=== PATIENT | female | born 2000 | race Caucasian/White ===

== ENCOUNTER → 2023-07-12 14:21 | Outpatient (CLI) | payer OTHER, SELFPAY ==
[2023-07-12 14:49] LABS: Basophils # 0.1 K/mm3 (0-0.2); Basophils % 0.4 % (0.1-2.0); Eosinophils # 0.3 K/mm3 (0.0-0.4); Eosinophils % 1.9 % (0.1-12.0); Hemoglobin 13.6 g/dL (12.2-16.2); Lymphocytes # 2.5 K/mm3 (0.7-4.5); Lymphocytes % 19.1 % (10-50); Mean Corpuscular HGB Conc 33.3 g/dL (31.8-35.4); Mean Corpuscular Hemoglobin 29.1 pg (27.0-31.2); Mean Corpuscular Volume 87.5 fl (81-99); Mean Platelet Volume 7.6 fl (7.4-10.4); Monocytes # 0.6 K/mm3 (0.1-1.0); Monocytes % 4.3 % (1.7-9.3); Neutrophils # 9.8 K/mm3 (1.8-7.8); Neutrophils % 74.2 % (37.0-80.0); Platelet Count 303 K/mm3 (142-424); Red Blood Count 4.69 M/mm3 (4.20-5.40); Red Cell Distribution Width 13.5 % (11.5-17.5); White Blood Count 13.2 K/mm3 (4.8-10.8)
[2023-07-14 12:13] LABS: Rapid Plasma Reagin Ab Titer Non Reactive titer (NonRea<1:1)
[2023-07-18 09:40] LABS: HIV Screen 4th Generation wRfx Non Reactive; Hepatitis B Surface Antigen Negative; Hepatitis C Antibody Non Reactive
== END ==
PROVIDERS: PCP Obstetrics & Gynecology; Visit Provider Obstetrics & Gynecology
DX: Z34.91 Encounter for supervision of normal pregnancy, unspecified, first trimester (principal); N92.6 Irregular menstruation, unspecified; Z3A.11 11 weeks gestation of pregnancy
CPT/HCPCS: 36415; 84144; 84702; 85025; 86593; 86703; 86762; 86850; 87086; 87340; 87380; G0432

== ENCOUNTER 2023-09-06 13:34 | Outpatient (CLI) | payer OTHER, SELFPAY ==
--- NOTE | 2023-09-06 13:34 | US_ITS ---
PROCEDURE: US OB /MATERNAL DETAIL CLINICAL INDICATION: 20 week anatomy scan COMPARISON: No exams were available for comparison FINDINGS: Transabdominal sonographic images of the pelvis were obtained. From her established due date she is . Single viable intrauterine gestation. Cephalic position. Placenta: Anteriorplacenta grade 1. There are several placental lakes. There is an average amount of fluid. The cervix appears satisfactory. Closed and measuring 3.36 in length. Complete survey performed and was unremarkable on the submitted images as in PACS. No discrete anomalies identified on survey imaging by technologist. Active fetus. Three-vessel cord with satisfactory umbilical cord insertion. 4- chamber heart noted. Situs, aortic arch, LVOT, RVOT, three-vessel view appear normal. Survey of brain & ventricles Unremarkable. Cerebellum, thalamus, choroid plexus, cisterna magna appear normal. Face and neck survey unremarkable. Profile, nasion, lips and nose appeared normal. Diaphragm and chest views unremarkable. Abdomen: Both kidneys noted and unremarkable. Stomach and bladder noted and satisfactory. Spine: Survey of the spine satisfactory with no anomalies identified nor imaged. Cervical, thoracic, lower spine appear normal. Both arms and legs noted. Amniotic Fluid: Adequate. Measurements: Average ultrasound age 19weeks 6days. Estimated due date by ultrasound age 0601/25/2024. Estimated weight 312g BPD = 19weeks 5days HC = 19weeks 3days AC = 20weeks 1day FL = 19weeks 5days Growth Percentile= 58 Heart Rate = 153bpm Cerebellum = 19weeks 2days Humerus = 20weeks 1day HC/AC is 1.14 FL/BPD is 0.69 FL/AC is 0.21 IMPRESSION: 1. Viable fetus in the cephalic presentation with an anterior placenta grade 1. There are several placental lakes. 2. The fluid is within normal limits. 3. The anatomical scan appears normal. 4. biometry is consistent with the dates. Dictated by: Trae Motta MD 09/07/2023 09:49 Trae Motta MD in [place] 09/07/2023 09:49
[2023-09-06 15:01] LABS: Basophils % 0.3 % (0.1-2.0); Eosinophils # 0.1 K/mm3 (0.0-0.4); Eosinophils % 0.9 % (0.1-12.0); Hematocrit 36.5 % (37.0-47.0); Hemoglobin 12.5 g/dL (12.2-16.2); Lymphocytes # 1.4 K/mm3 (0.7-4.5); Lymphocytes % 13.7 % (10-50); Mean Corpuscular HGB Conc 34.2 g/dL (31.8-35.4); Mean Corpuscular Hemoglobin 29.9 pg (27.0-31.2); Mean Corpuscular Volume 87.4 fl (81-99); Mean Platelet Volume 7.8 fl (7.4-10.4); Monocytes # 0.3 K/mm3 (0.1-1.0); Monocytes % 2.8 % (1.7-9.3); Neutrophils # 8.3 K/mm3 (1.8-7.8); Neutrophils % 82.3 % (37.0-80.0); Platelet Count 260 K/mm3 (142-424); Red Blood Count 4.17 M/mm3 (4.20-5.40); White Blood Count 10.1 K/mm3 (4.8-10.8)
[2023-09-06 15:27] LABS: Alanine Aminotransferase 34 U/L (12-78); Albumin Level 3.5 g/dl (3.5-5.0); Albumin/Globulin Ratio 1.5 (1.1-1.8); Alkaline Phosphatase 54 U/L (38-126); Anion Gap 9.8 mEq/L (5-15); Aspartate Amino Transferase 24 U/L (14-36); Bilirubin,Total 0.2 mg/dl (0.2-1.3); Blood Urea Nitrogen 4 mg/dl (7-17); Carbon Dioxide 23 mmol/L (22.0-30.0); Chloride 108 mmol/L (98-107); Estimated Glomerular Filt Rate 124 ml/min (>60); GFR (African American) 150 ML/MIN (>60); Globulin 2.3 g/dL (1.3-3.2); Glucose 133 mg/dl (74-100); Potassium 3.8 mmoL/L (3.5-5.1); Sodium 137 mmol/L (136-145); Total Protein,Serum 5.8 g/dl (6.3-8.2)
== END 2023-09-06 23:59 ==
LOC: RAD 13:34
PROVIDERS: PCP Obstetrics & Gynecology; Visit Provider Obstetrics & Gynecology
DX: O10.912 Unspecified pre-existing hypertension complicating pregnancy, second trimester (principal); Z3A.20 20 weeks gestation of pregnancy; E66.01 Morbid (severe) obesity due to excess calories; Z68.43 Body mass index [BMI] 50.0-59.9, adult
CPT/HCPCS: 76811; 80053; 84550; 85025

== ENCOUNTER 2023-09-09 14:28 | Outpatient (CLI) | payer OTHER, SELFPAY ==
[2023-09-09 14:44] LABS: Total Volume,Urine 3020 mL (600-1600)
[2023-09-09 14:55] LABS: Total Protein 24 Hour,Urine 483 mg/24 hr (40-90)
== END 2023-09-09 23:59 ==
LOC: LAB.DROPOF 14:29
PROVIDERS: Visit Provider Obstetrics & Gynecology
DX: O10.912 Unspecified pre-existing hypertension complicating pregnancy, second trimester (principal); Z3A.19 19 weeks gestation of pregnancy
CPT/HCPCS: 84155

== ENCOUNTER 2023-11-01 08:28 | Outpatient (CLI) | payer OTHER, SELFPAY ==
--- NOTE | 2023-11-01 08:29 | US_ITS ---
PROCEDURE: US OB BIOPHYSICAL PROFILE CLINICAL INDICATION: lga, chronic hypertension in COMPARISON: US US OB /MATERNAL DETAIL from 09/06/2023 FINDINGS: Transabdominal sonographic images of the uterus were obtained. From her established due date she is 27weeks 4days. The following parameters are obtained: Viable Fetus in the cephalic presentation with an anterior placenta grade 1. Average ultrasound age is 28weeks 0 days Estimated weight 1,137g 2 lb 8 oz The cervix measures 4.0 cm. Measurements: heart Rate = 139bpm BPD = 28weeks 2days, 60 percentile HC = 28weeks 0 days, 33 percentile AC = 28weeks 2days, 64 percentile FL = 27weeks 1day, 22 percentile HC/AC is 1.07 FL/BPD is 0.72 FL/AC is 0.21 49 percentile Amniotic fluid index: 10.27cm, MVP 4.13 cm. Qualitative AFV:2 Breathing movements: 2 Gross Body Movements: 2 Tone: 2 Biophysical profile score: 8 No obvious anomalies evident.Kidneys, profile, bladder, stomach, diaphragm, four-chamber heart, three-vessel cord appear normal. IMPRESSION: 1. Viable fetus in the cephalic presentation with an anterior placenta grade 1. 2. The fluid is within normal limits with an amniotic fluid index 10.27 cm, MVP 4.13 cm. 3. Biophysical profile is 8/8 with good breathing movement and movement seen. 4. There has been good interval growth with the fetus currently 49th percentile. 5. Limited anatomical scan appears normal. Dictated by: Trae Motta MD 11/02/2023 07:39 Trae Motta MD in [facility] 11/02/2023 07:39
[2023-11-01 10:43] LABS: Basophils # 0.1 K/mm3 (0-0.2); Basophils % 0.4 % (0.1-2.0); Eosinophils # 0.1 K/mm3 (0.0-0.4); Eosinophils % 0.9 % (0.1-12.0); Hematocrit 38.3 % (37.0-47.0); Hemoglobin 12.6 g/dL (12.2-16.2); Lymphocytes # 1.7 K/mm3 (0.7-4.5); Lymphocytes % 12.5 % (10-50); Mean Corpuscular HGB Conc 32.9 g/dL (31.8-35.4); Mean Corpuscular Hemoglobin 30.1 pg (27.0-31.2); Mean Corpuscular Volume 91.5 fl (81-99); Mean Platelet Volume 8.5 fl (7.4-10.4); Monocytes # 0.5 K/mm3 (0.1-1.0); Monocytes % 3.9 % (1.7-9.3); Neutrophils # 11.4 K/mm3 (1.8-7.8); Neutrophils % 82.4 % (37.0-80.0); Platelet Count 261 K/mm3 (142-424); Red Blood Count 4.18 M/mm3 (4.20-5.40); Red Cell Distribution Width 13.9 % (11.5-17.5); White Blood Count 13.8 K/mm3 (4.8-10.8)
[2023-11-01 12:41] LABS: Glucose,Fasting 111 mg/dl (74-100)
[2023-11-01 13:09] LABS: Glucose 1 Hour 166 mg/dL (74-100)
== END 2023-11-01 23:59 ==
LOC: RAD 08:29
PROVIDERS: PCP Obstetrics & Gynecology; Visit Provider Obstetrics & Gynecology
DX: O26.892 Other specified pregnancy related conditions, second trimester (principal); O10.912 Unspecified pre-existing hypertension complicating pregnancy, second trimester; E66.01 Morbid (severe) obesity due to excess calories; Z3A.27 27 weeks gestation of pregnancy; Z68.42 Body mass index [BMI] 45.0-49.9, adult
CPT/HCPCS: 36415; 76816; 76819; 82951; 85025

== ENCOUNTER 2023-11-17 10:28 | Outpatient (CLI) | payer OTHER, SELFPAY ==
[2023-11-17 10:56] LABS: Basophils # 0.1 K/mm3 (0-0.2); Basophils % 0.5 % (0.1-2.0); Eosinophils # 0.2 K/mm3 (0.0-0.4); Eosinophils % 1.3 % (0.1-12.0); Hemoglobin 12.5 g/dL (12.2-16.2); Lymphocytes # 1.8 K/mm3 (0.7-4.5); Lymphocytes % 12.7 % (10-50); Mean Corpuscular HGB Conc 32.1 g/dL (31.8-35.4); Mean Corpuscular Hemoglobin 29.1 pg (27.0-31.2); Mean Corpuscular Volume 90.6 fl (81-99); Mean Platelet Volume 8.2 fl (7.4-10.4); Monocytes # 0.6 K/mm3 (0.1-1.0); Monocytes % 4.4 % (1.7-9.3); Neutrophils # 11.7 K/mm3 (1.8-7.8); Neutrophils % 81.1 % (37.0-80.0); Platelet Count 255 K/mm3 (142-424); Red Cell Distribution Width 13.8 % (11.5-17.5); White Blood Count 14.4 K/mm3 (4.8-10.8)
[2023-11-17 12:01] LABS: Glucose,Fasting 111 mg/dl (74-100)
[2023-11-17 12:40] LABS: Alanine Aminotransferase 22 U/L (12-78); Albumin Level 3.5 g/dl (3.5-5.0); Albumin/Globulin Ratio 1.4 (1.1-1.8); Alkaline Phosphatase 96 U/L (38-126); Anion Gap 11.3 mEq/L (5-15); Aspartate Amino Transferase 18 U/L (14-36); Bilirubin,Total 0.3 mg/dl (0.2-1.3); Blood Urea Nitrogen 7 mg/dl (7-17); Calcium 9.6 mg/dl (8.4-10.2); Carbon Dioxide 24 mmol/L (22.0-30.0); Chloride 106 mmol/L (98-107); Estimated Glomerular Filt Rate 153 ml/min (>60); GFR (African American) 185 ML/MIN (>60); Globulin 2.5 g/dL (1.3-3.2); Glucose 100 mg/dl (74-100); Potassium 4.3 mmoL/L (3.5-5.1); Sodium 137 mmol/L (136-145); Uric Acid 3.7 mg/dl (2.5-6.2)
[2023-11-17 15:11] LABS: Glucose 1 Hour 143 mg/dL (74-100)
[2023-11-17 15:37] LABS: Glucose 2 Hour 192 mg/dL (74-100)
[2023-11-17 15:46] LABS: Glucose 3 Hour 170 mg/dL (74-100)
== END 2023-11-17 23:59 | disposition home or self-care (01) ==
LOC: LAB 10:29
PROVIDERS: Visit Provider Obstetrics & Gynecology
DX: O26.893 Other specified pregnancy related conditions, third trimester (principal); Z3A.29 29 weeks gestation of pregnancy
CPT/HCPCS: 36415; 80053; 82951; 84550; 85025

== ENCOUNTER 2023-12-06 09:30 | Outpatient (CLI) | payer OTHER, SELFPAY ==
--- NOTE | 2023-12-06 09:31 | US_ITS ---
PROCEDURE: US OB BIOPHYSICAL PROFILE CLINICAL INDICATION: Chronic Hypertension COMPARISON: US US OB /MATERNAL DETAIL from 09/06/2023 US US OB BIOPHYSICAL PROFILE from 11/01/2023 FINDINGS: Transabdominal sonographic images of the uterus were obtained. From her established due date she is 32weeks 4days. The following parameters are obtained: Viable Fetus in the cephalic presentation with an anterior placenta grade 2. Average ultrasound age is 33weeks 2days Estimated weight 2,184g Cervix measures 3.6 cm. Measurements: heart Rate = 139bpm BPD = 33weeks 1day, 57 percentile HC = 33weeks 2days, 31 percentile AC = 34weeks 0 days, 86 percentile FL = 32weeks 4days, 36 percentile HC/AC is 1.0 FL/BPD is 0.76 FL/AC is 0.21 67 percentile Amniotic fluid index: 10.01cm, MVP 6.73 cm. Qualitative AFV:2 Breathing movements: 2 Gross Body Movements: 2 Tone: 2 Biophysical profile score: 8 No obvious anomalies evident.Kidneys, profile, nasion, bladder, stomach, diaphragm, four-chamber heart three-vessel cord appear normal. IMPRESSION: 1. Viable fetus in the cephalic presentation with an anterior placenta grade 2. 2. The fluid is within normal limits with an amniotic fluid index of 10.01 cm, MVP 6.73 cm. 3. Biophysical profile 8/8 with good breathing movement and movement seen. 4. There has been good interval growth with the fetus currently 67th percentile. 5. Limited anatomical scan appears normal. Dictated by: Trae Motta MD 12/06/2023 11:11 Trae Motta MD in [place] 12/06/2023 11:11
== END 2023-12-06 23:59 | disposition home or self-care (01) ==
LOC: RAD 09:30
PROVIDERS: Visit Provider Obstetrics & Gynecology
DX: O10.913 Unspecified pre-existing hypertension complicating pregnancy, third trimester (principal); Z3A.32 32 weeks gestation of pregnancy; E66.01 Morbid (severe) obesity due to excess calories; Z68.42 Body mass index [BMI] 45.0-49.9, adult
CPT/HCPCS: 76816; 76819

== ENCOUNTER 2023-12-20 09:41 | Outpatient (CLI) | payer OTHER, SELFPAY ==
--- NOTE | 2023-12-20 09:47 | US_ITS ---
PROCEDURE: US OB BIOPHYSICAL PROFILE CLINICAL INDICATION: Chronic Hypertension COMPARISON: US US OB BIOPHYSICAL PROFILE from 11/01/2023 US US OB BIOPHYSICAL PROFILE from 12/06/2023 FINDINGS: Transabdominal sonographic images of the uterus were obtained. From her established due date she is 34weeks 4days. The following parameters are obtained: Viable Fetus in the cephalic presentation with and anterior placenta grade 2. Cervix measures 3.7 cm. Measurements: heart Rate = 134bpm Amniotic fluid index: 10.79cm, MVP 3.74 cm Qualitative AFV:2 Breathing movements: 2 Gross Body Movements: 2 Tone: 2 Biophysical profile score: 8 No obvious anomalies evident.Kidneys, profile, four-chamber heart, three-vessel cord appear normal. IMPRESSION: 1. Viable fetus in the cephalic presentation with an anterior placenta grade 2. 2. The fluid is within normal limits with an amniotic fluid index of 10.79 cm, MVP 3.74 cm. 3. Biophysical profile is 8/8 with good breathing movement and movement seen. 4. Limited anatomical scan appears normal. Dictated by: Trae Motta MD 12/20/2023 11:03 Trae Motta MD in [place] 12/20/2023 11:03
== END 2023-12-20 23:59 | disposition home or self-care (01) ==
LOC: RAD 09:42
PROVIDERS: Visit Provider Obstetrics & Gynecology
DX: O10.913 Unspecified pre-existing hypertension complicating pregnancy, third trimester (principal); E66.01 Morbid (severe) obesity due to excess calories; Z3A.34 34 weeks gestation of pregnancy
CPT/HCPCS: 76819

== ENCOUNTER 2023-12-20 11:35 | Outpatient (CLI) | payer OTHER, SELFPAY ==
[2023-12-20 11:43] VITALS: BMI 46.0
[2023-12-20 12:00] VITALS: BMI 46.0
[2023-12-20 12:04] LABS: Microscopic, Urine URINE MICROSCOPIC (MICROSCOPIC)
[2023-12-20 12:05] VITALS: BP 145/89; PULSE 108
[2023-12-20 12:07] LABS: Basophils # 0.1 K/mm3 (0-0.2); Basophils % 0.5 % (0.1-2.0); Eosinophils # 0.1 K/mm3 (0.0-0.4); Eosinophils % 0.8 % (0.1-12.0); Hematocrit 39.6 % (37.0-47.0); Lymphocytes # 1.9 K/mm3 (0.7-4.5); Lymphocytes % 15.4 % (10-50); Mean Corpuscular HGB Conc 32.8 g/dL (31.8-35.4); Mean Corpuscular Hemoglobin 29.3 pg (27.0-31.2); Mean Corpuscular Volume 89.4 fl (81-99); Mean Platelet Volume 8.9 fl (7.4-10.4); Monocytes # 0.6 K/mm3 (0.1-1.0); Monocytes % 4.7 % (1.7-9.3); Neutrophils # 9.7 K/mm3 (1.8-7.8); Neutrophils % 78.7 % (37.0-80.0); Platelet Count 264 K/mm3 (142-424); Red Blood Count 4.44 M/mm3 (4.20-5.40); Red Cell Distribution Width 14.7 % (11.5-17.5); White Blood Count 12.4 K/mm3 (4.8-10.8)
[2023-12-20] MEDS: BETAMETHASONE ACET/PHOS 6MG/ML 5ML MDV 12 MG IM (12:07)
[2023-12-20] MEDS: LABETALOL 100MG TABLET 200 MG PO (12:07)
[2023-12-20 12:09] VITALS: BP 133/77
[2023-12-20 12:12] LABS: Chloride 108 mmol/L (98-107); Potassium 4.2 mmoL/L (3.5-5.1); Sodium 135 mmol/L (136-145)
[2023-12-20 12:15] VITALS: BP 131/76
[2023-12-20 12:15] LABS: Alanine Aminotransferase 18 U/L (12-78); Albumin Level 3.6 g/dl (3.5-5.0); Albumin/Globulin Ratio 1.2 (1.1-1.8); Alkaline Phosphatase 127 U/L (38-126); Anion Gap 11.2 mEq/L (5-15); Aspartate Amino Transferase 19 U/L (14-36); Bilirubin,Total 0.3 mg/dl (0.2-1.3); Blood Urea Nitrogen 7 mg/dl (7-17); Carbon Dioxide 20 mmol/L (22.0-30.0); Creatinine Clearance Estimated 151 mL/min (50-200); Estimated Glomerular Filt Rate 153 ml/min (>60); GFR (African American) 185 ML/MIN (>60); Total Protein,Serum 6.6 g/dl (6.3-8.2)
[2023-12-20 12:16] LABS: Calcium 9.4 mg/dl (8.4-10.2); Glucose 120 mg/dl (74-100)
[2023-12-20 12:18] LABS: Appearance,Urine CLEAR (Clear); Bilirubin,Urine Negative (Negative); Blood, Urine Negative (Negative); Color,Urine YELLOW (Yellow); Glucose,Urine (UA) Negative (Negative); Ketones,Urine Negative (Negative); Leukocyte Esterase,Urine Negative (Negative); Nitrate,Urine Negative (Negative); Protein,Urine TRACE (Negative); Urobilinogen,Urine 0.2 EU/dl (0.2)
[2023-12-20 12:40] VITALS: BP 138/77
[2023-12-20 12:44] LABS: Bacteria,Urine Trace /lpf; Squamous Epithelial Cell,Urine Occasional #/hpf (0-5); WBC,Urine Occasional #/hpf (0-3)
[2023-12-20 12:45] VITALS: BP 136/67
[2023-12-20 12:51] LABS: Benzodiazepines Screen,Urine Negative ng/ml (<200)
[2023-12-20 12:52] LABS: Amphetamine/Metha Screen,Urine Negative ng/ml (<1000); Barbiturates Screen,Urine Negative ng/ml (<200)
[2023-12-20 12:53] LABS: Cannabinoid Screen,Urine Negative ng/ml (<50); Methadone Screen,Urine Negative ng/ml (<300)
[2023-12-20 12:54] LABS: Cocaine Screen,Urine Negative ng/ml (<300)
[2023-12-20 12:55] LABS: Opiate Screen,Urine Negative ng/ml (<300); Phencyclidine Screen,Urine Negative ng/ml (<25)
[2023-12-20 12:57] LABS: Creatinine,Urine Random 172 mg/dL (Not Estab.)
[2023-12-20 13:31] LABS: Uric Acid 4.5 mg/dl (2.5-6.2)
[2023-12-20 14:21] VITALS: BP 133/85
== END 2023-12-20 13:30 | disposition home or self-care (01) ==
LOC: OBOUT 11:37 → OB 11:39
PROVIDERS: Visit Provider Obstetrics & Gynecology
DX: O26.893 Other specified pregnancy related conditions, third trimester (principal); O13.3 Gestational [pregnancy-induced] hypertension without significant proteinuria, third trimester; Z3A.34 34 weeks gestation of pregnancy
CPT/HCPCS: 80053; 80307; 81001; 82570; 84156; 84550; 85025; G0463

== ENCOUNTER → 2023-12-21 12:31 | Outpatient (CLI) | payer OTHER, SELFPAY ==
[2023-12-21] MEDS: BETAMETHASONE ACET/PHOS 6MG/ML 5ML MDV 12 MG IM (12:45)
[2023-12-21 12:48] VITALS: BP 147/86; PULSE 105; RESP 20; TEMP 36.9; O2SAT 97
== END ==
LOC: OBOUT 12:32
PROVIDERS: Visit Provider Obstetrics & Gynecology
DX: O26.893 Other specified pregnancy related conditions, third trimester (principal); O10.913 Unspecified pre-existing hypertension complicating pregnancy, third trimester; Z3A.34 34 weeks gestation of pregnancy
CPT/HCPCS: 96372

== ENCOUNTER 2023-12-23 09:58 | Outpatient (CLI) | payer OTHER, SELFPAY ==
[2023-12-23 10:44] LABS: Basophils # 0.1 K/mm3 (0-0.2); Basophils % 0.4 % (0.1-2.0); Eosinophils # 0.1 K/mm3 (0.0-0.4); Eosinophils % 0.5 % (0.1-12.0); Hematocrit 38.5 % (37.0-47.0); Lymphocytes % 14.7 % (10-50); Mean Corpuscular HGB Conc 33.9 g/dL (31.8-35.4); Mean Corpuscular Hemoglobin 30.1 pg (27.0-31.2); Mean Corpuscular Volume 88.9 fl (81-99); Mean Platelet Volume 7.6 fl (7.4-10.4); Monocytes # 0.4 K/mm3 (0.1-1.0); Monocytes % 2.7 % (1.7-9.3); Neutrophils # 11.2 K/mm3 (1.8-7.8); Neutrophils % 81.6 % (37.0-80.0); Platelet Count 294 K/mm3 (142-424); Red Blood Count 4.33 M/mm3 (4.20-5.40); Red Cell Distribution Width 14.3 % (11.5-17.5); White Blood Count 13.7 K/mm3 (4.8-10.8)
[2023-12-23 11:06] LABS: Alanine Aminotransferase 24 U/L (12-78); Albumin Level 3.4 g/dl (3.5-5.0); Albumin/Globulin Ratio 1.4 (1.1-1.8); Alkaline Phosphatase 111 U/L (38-126); Aspartate Amino Transferase 24 U/L (14-36); Bilirubin,Total 0.4 mg/dl (0.2-1.3); Blood Urea Nitrogen 8 mg/dl (7-17); Calcium 9.9 mg/dl (8.4-10.2); Carbon Dioxide 23 mmol/L (22.0-30.0); Chloride 103 mmol/L (98-107); Estimated Glomerular Filt Rate 124 ml/min (>60); GFR (African American) 150 ML/MIN (>60); Globulin 2.5 g/dL (1.3-3.2); Glucose 139 mg/dl (74-100); Sodium 137 mmol/L (136-145); Total Protein,Serum 5.9 g/dl (6.3-8.2); Uric Acid 4.9 mg/dl (2.5-6.2)
[2023-12-23 15:55] LABS: Total Protein 24 Hour,Urine 434 mg/24 hr (40-90); Total Volume,Urine 2550 mL (600-1600)
== END 2023-12-23 23:59 | disposition home or self-care (01) ==
LOC: LAB.DROPOF 09:59
PROVIDERS: Visit Provider Obstetrics & Gynecology
DX: O10.913 Unspecified pre-existing hypertension complicating pregnancy, third trimester (principal); Z3A.35 35 weeks gestation of pregnancy
CPT/HCPCS: 36415; 80053; 84155; 84550; 85025; 86403; 87186

== ENCOUNTER 2023-12-27 14:23 | Outpatient (CLI) | payer OTHER, SELFPAY ==
--- NOTE | 2023-12-27 14:27 | US_ITS ---
PROCEDURE: US OB BIOPHYSICAL PROFILE CLINICAL INDICATION: Non Reactive NST Chronic hypertension COMPARISON: US US OB /MATERNAL DETAIL from 09/06/2023 US US OB BIOPHYSICAL PROFILE from 11/01/2023 US US OB BIOPHYSICAL PROFILE from 12/06/2023 US OB BIOPHYSICAL PROFILE from 12/20/2023 FINDINGS: Transabdominal sonographic images of the uterus were obtained. From her established due date she is 35weeks 4days. The following parameters are obtained: Viable Fetus in the cephalic presentation with an anterior placenta grade 2. The cervix measures 5.2 cm. Measurements: heart Rate = 147bpm Amniotic fluid index: 17.68cm, MVP 7.65 cm. Qualitative AFV:2 Breathing movements: 2 Gross Body Movements: 2 Tone: 2 Biophysical profile score: 8 No obvious anomalies evident.Kidneys, four-chamber heart three-vessel cord appear normal. IMPRESSION: 1. Viable fetus in the cephalic presentation with an anterior placenta grade 2. 2. The fluid is within normal limits with an amniotic fluid index of 17.68 cm, MVP 7.65 cm. 3. Biophysical profile is 8/8 with good breathing movement and movement seen. 4. Limited anatomical scan appears normal. Dictated by: Trae Motta MD 12/27/2023 16:30 Trae Motta MD in [facility] 12/27/2023 16:30
== END 2023-12-27 23:59 | disposition home or self-care (01) ==
LOC: RAD 14:24
PROVIDERS: Visit Provider Obstetrics & Gynecology
DX: O26.893 Other specified pregnancy related conditions, third trimester (principal); O28.8 Other abnormal findings on antenatal screening of mother; O11.9 Pre-existing hypertension with pre-eclampsia, unspecified trimester; O24.419 Gestational diabetes mellitus in pregnancy, unspecified control; O10.913 Unspecified pre-existing hypertension complicating pregnancy, third trimester; E66.01 Morbid (severe) obesity due to excess calories; Z3A.35 35 weeks gestation of pregnancy; Z68.42 Body mass index [BMI] 45.0-49.9, adult
CPT/HCPCS: 76819

== ENCOUNTER 2023-12-30 09:06 | Outpatient (CLI) | payer OTHER, SELFPAY ==
[2023-12-30 09:15] VITALS: BP 134/81; PULSE 97; RESP 16; TEMP 36.7; O2SAT 96; BMI 44.9
[2023-12-30 09:20] VITALS: BMI 44.9
[2023-12-30 09:48] LABS: Microscopic, Urine URINE MICROSCOPIC (MICROSCOPIC)
[2023-12-30 09:50] LABS: Appearance,Urine CLEAR (Clear); Bilirubin,Urine Negative (Negative); Blood, Urine Negative (Negative); Color,Urine YELLOW (Yellow); Glucose,Urine (UA) Negative (Negative); Ketones,Urine Negative (Negative); Leukocyte Esterase,Urine Negative (Negative); Nitrate,Urine Negative (Negative); Protein,Urine Negative (Negative); Urobilinogen,Urine 0.2 EU/dl (0.2)
[2023-12-30 10:01] LABS: Barbiturates Screen,Urine Negative ng/ml (<200)
[2023-12-30 10:02] LABS: Benzodiazepines Screen,Urine Negative ng/ml (<200)
[2023-12-30 10:03] LABS: Cannabinoid Screen,Urine Negative ng/ml (<50); Cocaine Screen,Urine Negative ng/ml (<300)
[2023-12-30 10:04] LABS: Methadone Screen,Urine Negative ng/ml (<300)
[2023-12-30 10:05] LABS: Opiate Screen,Urine Negative ng/ml (<300)
[2023-12-30 10:06] LABS: Phencyclidine Screen,Urine Negative ng/ml (<25)
[2023-12-30 10:13] LABS: Amphetamine/Metha Screen,Urine Negative ng/ml (<1000)
[2023-12-30 10:39] LABS: RBC,Urine Occasional #/hpf (0-3)
[2023-12-30 10:54] LABS: Bacteria,Urine 1+ /lpf; Mucus,Urine Trace /lpf
== END 2023-12-30 10:15 | disposition home or self-care (01) ==
LOC: OBOUT 09:07 → OB 09:09
PROVIDERS: Visit Provider Nurse Practitioner Obstetrics & Gynecology
DX: O26.893 Other specified pregnancy related conditions, third trimester (principal); Z3A.36 36 weeks gestation of pregnancy
CPT/HCPCS: 59025; 80307; 81001; G0463

== ENCOUNTER 2024-01-03 09:32 | Outpatient (CLI) | payer OTHER, SELFPAY ==
--- NOTE | 2024-01-03 09:33 | US_ITS ---
PROCEDURE: US OB BIOPHYSICAL PROFILE CLINICAL INDICATION: Chronic Hypertension affecting COMPARISON: US US OB /MATERNAL DETAIL from 09/06/2023 US US OB BIOPHYSICAL PROFILE from 12/20/2023 US US OB BIOPHYSICAL PROFILE from 12/27/2023 FINDINGS: Transabdominal sonographic images of the uterus were obtained. From her established due date she is 36weeks 4days. The following parameters are obtained: Viable Fetus in the cephalic presentation with and anterior placenta grade 2. Average ultrasound age is 36weeks 5days Estimated weight 3,084g, 6 lb 13 oz. Cervix measures 4.4 cm. Measurements: heart Rate = 139bpm BPD = 36weeks 4days, 60 percentile HC = 36weeks 5days, 23 percentile AC = 38weeks 0 days, 90 percentile FL = 35weeks 3days, 20 percentile HC/AC is 0.95 FL/BPD is 0.77 FL/AC is 0.2 65 percentile Amniotic fluid index: 12.67cm, MVP 6.28 cm. Qualitative AFV:2 Breathing movements: 2 Gross Body Movements: 2 Tone: 2 Biophysical profile score: 8 No obvious anomalies evident.Kidneys, profile, nasion, bladder, stomach, four-chamber heart, three-vessel cord appear normal. IMPRESSION: 1. Viable fetus in the cephalic presentation with an anterior placenta grade 2. 2. The fluid is within normal limits with an amniotic fluid index of 12.67 cm, MVP 6.27 cm. 3. Biophysical profile is 8/8 with good movement and breathing movement seen. 4. There has been good interval growth with the fetus currently 65th percentile. Dictated by: Trae Motta MD 01/03/2024 12:02 Trae Motta MD in [facility] 01/03/2024 12:02
== END 2024-01-03 23:59 | disposition home or self-care (01) ==
LOC: RAD 09:33
PROVIDERS: Visit Provider Obstetrics & Gynecology
DX: O10.913 Unspecified pre-existing hypertension complicating pregnancy, third trimester (principal); E66.01 Morbid (severe) obesity due to excess calories; Z3A.36 36 weeks gestation of pregnancy
CPT/HCPCS: 76816; 76819

== ENCOUNTER 2024-01-06 05:08 | Outpatient (CLI) | payer OTHER, SELFPAY ==
[2024-01-06 05:12] VITALS: BMI 47.3
[2024-01-06 05:23] VITALS: BP 153/80; PULSE 84; RESP 22; TEMP 36.9; O2SAT 97; BMI 47.3
== END 2024-01-06 05:48 | disposition home or self-care (01) ==
LOC: OBOUT 05:09 → OB 05:11
PROVIDERS: Visit Provider Internal Medicine
DX: O26.893 Other specified pregnancy related conditions, third trimester (principal); Z3A.37 37 weeks gestation of pregnancy
CPT/HCPCS: G0463

== ENCOUNTER 2024-01-10 14:04 | Outpatient (CLI) | payer OTHER, SELFPAY ==
--- NOTE | 2024-01-10 14:05 | US_ITS ---
PROCEDURE: US OB BIOPHYSICAL PROFILE CLINICAL INDICATION: chronic hypertension, GDM COMPARISON: US US OB /MATERNAL DETAIL from 09/06/2023 US US OB BIOPHYSICAL PROFILE from 12/27/2023 US US OB BIOPHYSICAL PROFILE from 01/03/2024 FINDINGS: Transabdominal sonographic images of the uterus were obtained. From her established due date she is 37weeks 4days. The following parameters are obtained: Viable Fetus in the cephalic presentation with an anterior placenta grade 2. The cervix measures 2.85 cm. Measurements: heart Rate = 144bpm Amniotic fluid index: 11.31cm, MVP 4.95 cm. Qualitative AFV:2 Breathing movements: 2 Gross Body Movements: 2 Tone: 2 Biophysical profile score: 8 No obvious anomalies evident.Kidneys, four-chamber heart, three-vessel cord appear normal. IMPRESSION: 1. Viable fetus in the cephalic presentation with an anterior placenta grade 2. 2. The fluid is within normal limits with an amniotic fluid index of 11.31 cm, MVP 4.95 cm. 3. Biophysical profile is 8/8 with good breathing movement and movement seen. 4. Limited anatomical scan appears normal. Dictated by: Trae Motta MD 01/10/2024 16:21 Trae Motta MD in [place] 01/10/2024 16:21
== END 2024-01-10 23:59 | disposition home or self-care (01) ==
LOC: RAD 14:05
PROVIDERS: PCP Obstetrics & Gynecology; Visit Provider Obstetrics & Gynecology
DX: O11.3 Pre-existing hypertension with pre-eclampsia, third trimester (principal); O24.419 Gestational diabetes mellitus in pregnancy, unspecified control; O10.913 Unspecified pre-existing hypertension complicating pregnancy, third trimester; Z3A.37 37 weeks gestation of pregnancy
CPT/HCPCS: 76819

== ENCOUNTER 2024-01-13 05:05 | Outpatient (CLI) | payer OTHER, SELFPAY ==
[2024-01-13 05:18] VITALS: BP 144/85; PULSE 87; RESP 17; TEMP 36.7; O2SAT 96; BMI 47.9
== END 2024-01-13 06:04 | disposition home or self-care (01) ==
LOC: OBOUT 05:06 → OB 05:07
PROVIDERS: Visit Provider Obstetrics & Gynecology
DX: O10.013 Pre-existing essential hypertension complicating pregnancy, third trimester (principal); Z3A.37 37 weeks gestation of pregnancy
CPT/HCPCS: G0463

== ENCOUNTER 2024-01-17 12:07 | Inpatient (IN) | payer OTHER, SELFPAY ==
--- NOTE | 2024-01-17 12:22 | P.CONPHA_ITS ---
Pharmacy Intervention Comments: MEDICATION RECONCILIATION COMPLETED ON PATIENT USING EXTERNAL FILL HISTORY FROM PHARMACY AND LIST FROM [facility] SET UP OPERATOR [facility] OFFICE. -CONCHITA LONGD
--- NOTE | 2024-01-17 12:22 | HMH.PHAINT1 ---
Pharmacy Intervention Comments: MEDICATION RECONCILIATION COMPLETED ON PATIENT USING EXTERNAL FILL HISTORY FROM PHARMACY AND LIST FROM [facility] GROWING TECHNICIAN OFFICE. -CONCHITA LONGD
--- NOTE | 2024-01-17 12:36 | P.HP_ITS ---
History of Present Illness *Admission Date: 01/18/24 *Reason for visit:: induction *History of present illness: Susi Westfall is a pleasant 23yo who presented to labor and delivery at 38 weeks and 4 days gestation for a medically indicated induction of labor. has been complicated by chronic hypertension, gestational diabetes controlled with metformin, obesity, and depression. Hypertension has been controlled with labetalol 200 mg 3 times a day. She did have 1 elevated blood pressure near arrival but it was time for her labetalol dose. Blood pressure has been otherwise well-controlled. Of note her uric acid has been slowly rising over the last couple months otherwise her PIH labs have been within normal limits. She denies any headaches, vision changes, chest pain, or shortness of breath. On arrival she endorsed good movement and denies any leakage of fluid or vaginal bleeding. O+, antibody negative, rubella immune, hepatitis B negative, hepatitis C negative, RPR negative, HIV negative 1 hour GTT: 166 3-hour GTT: 111/143/192/170 GBS negative [facility] Disclaimer: The information contained in this section may have been updated after the prachi huertas was seen, as this information can be updated by other users. Medical History GDM, class A2 Chronic hypertension affecting Surgical History No significant past surgical history Family History Other Cancer Diabetes FHx: mental illness Hyperlipidemia Hypertension Substance abuse Thyroid disorder Social History Smoking Status: Former smoker alcohol intake: never substance use type: denies use current occupational status: employed Travel in the last 8 weeks: None Review of Systems Review of Systems Review of systems (narrative): Review of Systems Constitutional: Denies fever, chills, and sweats Eyes: Denies vision change/ pain Respiratory: Denies cough and shortness of breath Cardiovascular: Denies chest pain and lightheadedness Gastrointestinal: Denies contractions. Denies nausea, vomiting. Genitourinary: Denies dysuria and incontinence Musculoskeletal: Denies shoulder pain and back pain Neurological: Denies change in speech or headaches Meds Home Medications and Allergies Home Medications Medication Instructions Recorded Confirmed Type vits no.126-ferrous fum 1 tab PO DAILY #30 tabs 07/12/23 01/17/24 Rx 28 mg iron-folic acid 800 mcg tablet (Classic ) aspirin 81 mg tablet,delayed 81 mg PO DAILY #60 tabs 09/06/23 01/17/24 Rx release (Adult Low Dose Aspirin) sertraline 25 mg tablet 25 mg PO DAILY #30 tabs 11/01/23 01/17/24 Rx blood-glucose meter #1 ea 11/18/23 01/17/24 Rx metformin 500 mg tablet 500 mg PO DAILY #60 tabs 12/20/23 01/17/24 Rx labetalol 200 mg tablet 200 mg PO TID 12/23/23 01/17/24 History ondansetron 4 mg disintegrating 4 mg PO Q4HP PRN nausea and 01/17/24 01/17/24 History tablet vomiting New Prescriptions to Start Prescriptions: Allergies Allergy/AdvReac Type Severity Reaction Status Date / Time Penicillins Allergy Intermediate rash Verified 01/10/24 09:24 Exam Data for Last 24 hours Narrative: General: patient is alert oriented in no acute distress and responds appropriately to questions. HEENT: NCAT, EOMI, moist mucous membranes, neck supple with full ROM Cardiovascular: RRR +S1/S2, no murmurs or rubs Pulmonary: Clear to auscultation bilaterally, nonlabored breathing, symmetric chest rise Abdominal: Gravid abdomen appropriate for gestation. No guarding, rebound, or tenderness noted. SVE: Closed thick and high Extremities: trace edema, no tenderness or cyanosis noted Skin: Normal turgor, intact, warm. Negative for erythema, pallor, petechia, or lesions Neurologic: Negative for sensory or motor deficit Psychiatric: Normal affect, normal thought process, good judgment and insight, no depression or anxious mood appreciated. *Routine HEENT Exam Head: Present normocephalic and atraumatic Eye: Present EOMI, PERRL and normal accommodation; Absent conjunctival icterus, scleral injection, nystagmus or exophthalmos ENT: Present mucous membranes moist *Routine Respiratory Exam Respiratory: Present CTA bilaterally, normal respiratory effort, able to speak in complete sentences and symmetric chest movement; Absent accessory muscle use, decreased breath sounds, rales, respiratory distress, wheezes, distant breath sounds or diminished air movement *Routine Cardiovascular Exam Cardiovascular: Present RRR, Normal S1 and Normal S2; Absent murmur or gallop *Routine Abdominal Exam Abdominal: Present soft and normoactive bowel sounds; Absent tenderness, distended, rebound or guarding *Routine Rectal Exam Rectal:: deferred *Routine Genitalia Exam Genitalia:: normal female Assessment and Plan *Assessment and plan (1) Chronic hypertension with superimposed pre-eclampsia: Status: Acute Category: Medical Code(s): O11.9 - Pre-existing hypertension with pre-eclampsia, unspecified trimester (2) GDM, class A2: Status: Acute Category: Medical Code(s): O24.419 - Gestational diabetes mellitus in , unspecified control (3) Depression affecting : Status: Acute Category: Medical Code(s): O99.340 - Other mental disorders complicating , unspecified trimester; F32.A - Depression, unspecified (4) Chronic hypertension affecting : Status: Acute Category: Medical Code(s): O10.919 - Unspecified pre-existing hypertension complicating , unspecified trimester (5) Obesity, Class III, BMI 40-49.9 (morbid obesity): Status: Acute Category: Medical Code(s): E66.01 - Morbid (severe) obesity due to excess calories (6) : Status: Acute Category: Medical Code(s): Z34.90 - Encounter for supervision of normal , unspecified, unspecified trimester Plan -Monitor vitals -Admit to L&D for induction of labor -On arrival the patient was having tachycardia which was later suspected to be accelerations. Decision was made to proceed with dinoprostone induction. The patient tolerated the overnight Cervidil well without any serial heart rate abnormalities. This morning the patient was 1/50/-3 and was given a dose of 50 mcg of p.o. Cytotec. Once the Estrella score allows it we will start Pitocin, per protocol. Plan for induction with 25mcg of vaginal cytotec [id number] per protocol -GBS positive, allergy to penicillin, resistant to clindamycin, will require vancomycin when Pitocin starts -Blood type: O+ -Hemoglobin: 13.5, Plt: 278 -Anticipate vaginal delivery of female infant: Irlanda Lyon #Gestational diabetes -Patient was controlled with metformin -Discontinue medication and Accu-Cheks -During the latent phase of labor we will check her sugars every 4 hours and during active labor we will check her sugars every other hour. Will get a blood sugar when the patient becomes complete #Chronic hypertension -Well-controlled with labetalol 200 mg 3 times daily -[facility] labs ordered. PC ratio on arrival was 0.44 -1 month ago on 12/23/2023 her total 24-hour urine was 434, Previously at the beginning of it was 483. I suspect all of these labs are within normal limits and at the patient's baseline -Of note the patient's AST went from 24-42. We will continue to follow this #Obesity -BMI: 48. Complicates all aspects of care
[2024-01-17 12:49] VITALS: BMI 47.9
[2024-01-17 13:00] VITALS: BP 144/96; PULSE 96
--- NOTE | 2024-01-17 13:01 | EXP.PHA.CONS ---
Pharmacy Consult Date: 01/17/24 Time: 13:02 Referring provider: DR. LEE Reason for Consult:: VANCOMYCIN DOSING Allergies Allergy/AdvReac Type Severity Reaction Status Date / Time Penicillins Allergy Intermediate rash Verified 01/10/24 09:24 Home Medications Medication Instructions Recorded Confirmed Type vits no.126-ferrous fum 1 tab PO DAILY #30 tabs 07/12/23 01/17/24 Rx 28 mg iron-folic acid 800 mcg tablet (Classic ) aspirin 81 mg tablet,delayed 81 mg PO DAILY #60 tabs 09/06/23 01/17/24 Rx release (Adult Low Dose Aspirin) sertraline 25 mg tablet 25 mg PO DAILY #30 tabs 11/01/23 01/17/24 Rx blood-glucose meter #1 ea 11/18/23 01/17/24 Rx metformin 500 mg tablet 500 mg PO DAILY #60 tabs 12/20/23 01/17/24 Rx labetalol 200 mg tablet 200 mg PO TID 12/23/23 01/17/24 History ondansetron 4 mg disintegrating 4 mg PO Q4HP PRN nausea and 01/17/24 01/17/24 History tablet vomiting New Prescriptions to Start Prescriptions: Height: 1.63 m Weight: 126.552 kg Laboratory Results:: NONE Medical History: Medical History (Updated 12/23/23 @ 17:14 by Alysha Lee DO) GDM, class A2 Chronic hypertension affecting Assessment and Plan Assessment and plan all Dx Assessment and Plan for all problems:: Pharmacokinetic dosing service Objective: Patient: Floor: Age: 23 yo Serum creatinine: 0.6 mg/dL Height: 64.2 Inches Weight (kg): 126.6 Assessment: IBW (kg): 55.16 Dosing wt(kg): 126.6 Estimated Creatinine clearance (ml/min): 127.0 CRCL method: Cockcroft and Gault using ibw(default). Drug selected: Vancomycin Loading dose (mg): 0 Vd (liters): 101.3 (factor used: 0.8 L/kg) Terry (hr-1): 0.110 Half life (hrs): 6.30 Recommended dose: 2000 mg Interval: 8 hrs Infusion time (hrs): 2.0 Predicted peak (mcg/mL): 30.3 Predicted trough (mcg/mL): 15.66 Total body weight is being used for vancomycin dosing. Recommendations: Give Vancomycin 2000 mg q 8 hrs with an expected Cpeak of 30.3 mcg/ml and an expected Ctrough of 15.66 mcg/ml ----Vanco only - ignore for aminoglycosides----- CLvanco= 11.14 L/hr AUC 0-24 /DHARMESH Data: DHARMESH 0.5 mcg/mL: AUC/DHARMESH: 1077.2 DHARMESH 1.0 mcg/mL: AUC/DHARMESH: 538.6 --------- DHARMESH 1.5 mcg/mL: AUC/DHARMESH: 359.1 DHARMESH 2.0 mcg/mL: AUC/DHARMESH: 269.3
[2024-01-17 13:35] LABS: Basophils # 0.1 K/mm3 (0-0.2); Basophils % 0.5 % (0.1-2.0); Eosinophils # 0.2 K/mm3 (0.0-0.4); Eosinophils % 1.6 % (0.1-12.0); Hematocrit 40.2 % (37.0-47.0); Hemoglobin 13.5 g/dL (12.2-16.2); Lymphocytes # 2.3 K/mm3 (0.7-4.5); Mean Corpuscular HGB Conc 33.7 g/dL (31.8-35.4); Mean Corpuscular Hemoglobin 29.5 pg (27.0-31.2); Mean Corpuscular Volume 87.6 fl (81-99); Mean Platelet Volume 8.2 fl (7.4-10.4); Monocytes # 0.6 K/mm3 (0.1-1.0); Monocytes % 3.7 % (1.7-9.3); Neutrophils % 79.2 % (37.0-80.0); Platelet Count 278 K/mm3 (142-424); Red Blood Count 4.59 M/mm3 (4.20-5.40); White Blood Count 15.1 K/mm3 (4.8-10.8)
[2024-01-17 13:40] LABS: MANUAL DIFFERENTIAL MANUAL DIFFERENTIAL (MANUAL DIFF)
[2024-01-17] MEDS: LACTATED RINGERS 1000ML 1,000 ML 250 ML IV (13:43)
[2024-01-17] MEDS: VANCOMYCIN HCL 2,000 MG in 0.9 % SODIUM CHLORIDE 250 ML 125 MG IV ×2 (13:43→20:27)
[2024-01-17 13:49] LABS: Chloride 109 mmol/L (98-107)
[2024-01-17 13:50] LABS: Potassium 3.8 mmoL/L (3.5-5.1); Sodium 136 mmol/L (136-145)
[2024-01-17 13:52] LABS: Blood Urea Nitrogen 10 mg/dl (7-17); Creatinine Clearance Estimated 151 mL/min (50-200); Estimated Glomerular Filt Rate 153 ml/min (>60); GFR (African American) 185 ML/MIN (>60)
[2024-01-17 13:53] LABS: Anion Gap 10.8 mEq/L (5-15); Carbon Dioxide 20 mmol/L (22.0-30.0); Glucose 89 mg/dl (74-100)
[2024-01-17 14:16] VITALS: BP 142/88; PULSE 94; RESP 18; TEMP 36.8; O2SAT 95; BMI 47.9
[2024-01-17] MEDS: DEXTROSE 5%-LACTATED RINGERS 1,000 ML 125 ML IV (15:16)
[2024-01-17 15:24] LABS: POC Glucose,Bedside 93 (70-110)
[2024-01-17 15:55] VITALS: BP 149/85; PULSE 91
[2024-01-17 16:18] LABS: Creatinine,Urine Random 133 mg/dL (Not Estab.)
[2024-01-17 16:22] LABS: Alanine Aminotransferase 24 U/L (12-78); Albumin Level 3.5 g/dl (3.5-5.0); Albumin/Globulin Ratio 1.3 (1.1-1.8); Alkaline Phosphatase 168 U/L (38-126); Anion Gap 12.9 mEq/L (5-15); Aspartate Amino Transferase 42 U/L (14-36); Bilirubin,Total 0.3 mg/dl (0.2-1.3); Blood Urea Nitrogen 11 mg/dl (7-17); Calcium 9.8 mg/dl (8.4-10.2); Carbon Dioxide 21 mmol/L (22.0-30.0); Chloride 107 mmol/L (98-107); Creatinine Clearance Estimated 151 mL/min (50-200); Estimated Glomerular Filt Rate 153 ml/min (>60); GFR (African American) 185 ML/MIN (>60); Globulin 2.7 g/dL (1.3-3.2); Glucose 88 mg/dl (74-100); Lactate Dehydrogenase 270 U/L (313-618); Potassium 3.9 mmoL/L (3.5-5.1); Sodium 137 mmol/L (136-145); Total Protein,Serum 6.2 g/dl (6.3-8.2); Uric Acid 5.3 mg/dl (2.5-6.2)
[2024-01-17] MEDS: LABETALOL 100MG TABLET 200 MG PO ×2 (16:35→20:27)
[2024-01-17 17:06] LABS: Lymphocytes % 30 % (10-50); Monocytes % 2 % (2-9); Neutrophils % 68 % (42-76); Platelet Estimate Normal; RBC Morphology Normal; Total Cells Counted 100
[2024-01-17 17:09] VITALS: BP 131/67; PULSE 84
[2024-01-17] MEDS: DINOPROSTONE 10MG VAG INSERT 10 MG VG (17:36)
[2024-01-17 18:16] VITALS: BP 115/58; PULSE 87
[2024-01-18 04:39] VITALS: BP 136/66; PULSE 90; RESP 18; TEMP 36.6; O2SAT 98
[2024-01-18] MEDS: VANCOMYCIN HCL 2,000 MG in 0.9 % SODIUM CHLORIDE 250 ML 125 MG IV ×3 (05:08→21:21)
[2024-01-18] MEDS: miSOPROStol 100MCG TABLET 50 MCG PO (05:56)
[2024-01-18] MEDS: LABETALOL 100MG TABLET 200 MG PO ×3 (08:20→21:21)
[2024-01-18] MEDS: DEXTROSE 5%-LACTATED RINGERS 1,000 ML 125 ML IV ×2 (08:21→20:40)
[2024-01-18 08:32] LABS: Chloride 107 mmol/L (98-107); Sodium 135 mmol/L (136-145)
[2024-01-18 08:33] LABS: Potassium 3.8 mmoL/L (3.5-5.1)
[2024-01-18 08:34] LABS: Basophils # 0.1 K/mm3 (0-0.2); Basophils % 0.5 % (0.1-2.0); Eosinophils # 0.2 K/mm3 (0.0-0.4); Eosinophils % 1.3 % (0.1-12.0); Hematocrit 40.3 % (37.0-47.0); Hemoglobin 13.5 g/dL (12.2-16.2); Lymphocytes # 1.2 K/mm3 (0.7-4.5); Lymphocytes % 10.2 % (10-50); Mean Corpuscular HGB Conc 33.3 g/dL (31.8-35.4); Mean Corpuscular Hemoglobin 29.9 pg (27.0-31.2); Mean Corpuscular Volume 89.6 fl (81-99); Mean Platelet Volume 8.3 fl (7.4-10.4); Monocytes # 0.3 K/mm3 (0.1-1.0); Monocytes % 2.4 % (1.7-9.3); Neutrophils # 9.9 K/mm3 (1.8-7.8); Neutrophils % 85.6 % (37.0-80.0); Platelet Count 239 K/mm3 (142-424); Red Cell Distribution Width 15.1 % (11.5-17.5); White Blood Count 11.5 K/mm3 (4.8-10.8)
[2024-01-18 08:35] LABS: Alanine Aminotransferase 22 U/L (12-78); Albumin Level 3.2 g/dl (3.5-5.0); Albumin/Globulin Ratio 1.2 (1.1-1.8); Alkaline Phosphatase 144 U/L (38-126); Anion Gap 8.8 mEq/L (5-15); Aspartate Amino Transferase 28 U/L (14-36); Bilirubin,Total 0.2 mg/dl (0.2-1.3); Blood Urea Nitrogen 7 mg/dl (7-17); Carbon Dioxide 23 mmol/L (22.0-30.0); Creatinine Clearance Estimated 151 mL/min (50-200); Estimated Glomerular Filt Rate 153 ml/min (>60); GFR (African American) 185 ML/MIN (>60); Globulin 2.6 g/dL (1.3-3.2); Total Protein,Serum 5.8 g/dl (6.3-8.2)
[2024-01-18 08:36] LABS: Calcium 8.9 mg/dl (8.4-10.2); Glucose 133 mg/dl (74-100)
[2024-01-18 08:41] LABS: MANUAL DIFFERENTIAL MANUAL DIFFERENTIAL (MANUAL DIFF)
[2024-01-18 09:16] LABS: Eosinophils % 1 % (0-3); Lymphocytes % 13 % (10-50); Monocytes % 2 % (2-9); Neutrophils % 84 % (42-76); Total Cells Counted 100
[2024-01-18 09:17] LABS: Platelet Estimate Normal; RBC Morphology Normal
[2024-01-18 12:27] LABS: POC Glucose,Bedside 92 (70-110)
[2024-01-18 12:44] LABS: Vancomycin,Trough 8.9 ug/mL (5.0-10.0)
--- NOTE | 2024-01-18 12:54 | EXP.LABOR.NO ---
Labor Note Subjective: Date: 01/18/24 Time: 12:54 irregular contractions Comment:: Reports uterine irritability and cramping. Endorses good movement. Denies any problems Objective: NST:: Reactive Contractions:: infrequent Cervical Dilation:: 1-2 Effacement:: 70% Station: -3 Membranes: intact Fetus: Monitoring?: Yes monitoring type:: External Assessment: Labor progressing?: Yes Plan: Plan for ?: No Continue to monitor?: Yes Start pushing?: No Comment:: Start Pitocin via the 3 x 3 protocol. Per patient request delay amniotomy
[2024-01-18] MEDS: OXYTOCIN/RINGERS LACTATE 30 UNITS/500 ML BAG IV (13:38)
--- NOTE | 2024-01-18 14:02 | P.CONPHA_ITS ---
Pharmacy Consult Date: 01/18/24 Time: 14:02 Referring provider: DR. LEE Reason for Consult:: VANCOMYCIN LEVEL Allergies Allergy/AdvReac Type Severity Reaction Status Date / Time Penicillins Allergy Intermediate rash Verified 01/10/24 09:24 Home Medications Medication Instructions Recorded Confirmed Type vits no.126-ferrous fum 1 tab PO DAILY #30 tabs 07/12/23 01/17/24 Rx 28 mg iron-folic acid 800 mcg tablet (Classic ) aspirin 81 mg tablet,delayed 81 mg PO DAILY #60 tabs 09/06/23 01/17/24 Rx release (Adult Low Dose Aspirin) sertraline 25 mg tablet 25 mg PO DAILY #30 tabs 11/01/23 01/17/24 Rx blood-glucose meter #1 ea 11/18/23 01/17/24 Rx metformin 500 mg tablet 500 mg PO DAILY #60 tabs 12/20/23 01/17/24 Rx labetalol 200 mg tablet 200 mg PO TID 12/23/23 01/17/24 History ondansetron 4 mg disintegrating 4 mg PO Q4HP PRN nausea and 01/17/24 01/17/24 History tablet vomiting New Prescriptions to Start Prescriptions: Height: 1.63 m Weight: 126.552 kg Laboratory Results:: Laboratory Results - last 24 hr 01/17/24 12:13: Urine Creatinine 133, Urine Total Protein 58.0 H 01/17/24 13:16: Total Counted 100, Neutrophils % (Manual) 68, Lymphocytes % (Manual) 30, Monocytes % (Manual) 2, Platelet Estimate Normal, RBC Morphology Normal, Sodium 137, Potassium 3.9, Chloride 107, Carbon Dioxide 21 L, Anion Gap 12.9, BUN 11, Creatinine 0.50 L, Estimated Creat Clear 151, Estimated GFR 153, Est GFR ( Amer) 185, Glucose 88, Uric Acid 5.3, Calcium 9.8, Total Bilirubin 0.3, AST 42 H, ALT 24, Alkaline Phosphatase 168 H, Lactate Dehydrogenase 270 L, Total Protein 6.2 L, Albumin 3.5, Globulin 2.7, [place] min/Globulin Ratio 1.3, Blood Type O Positive, Antibody Screen Negative, Crossmatch (AHG) See Detail 01/17/24 13:44: POC Glucose 93 01/18/24 08:16: WBC 11.5 H, RBC 4.50, Hgb 13.5, Hct 40.3, MCV 89.6, MCH 29.9, MCHC 33.3, RDW 15.1, Plt Count 239, MPV 8.3, Neut % (Auto) 85.6 H, Lymph % (Auto) 10.2, [place] % (Auto) 2.4, Eos % (Auto) 1.3, Baso % (Auto) 0.5, Neut # (Auto) 9.9 H, Lymph # (Auto) 1.2, [place] # (Auto) 0.3, Eos # (Auto) 0.2, Baso # (Auto) 0.1, Total Counted 100, Neutrophils % (Manual) 84 H, Lymphocytes % (Manual) 13, Monocytes % (Manual) 2, Eosinophils % (Manual) 1, Platelet Estimate Normal, RBC Morphology Normal, Sodium 135 L, Potassium 3.8, Chloride 107, Carbon Dioxide 23, Anion Gap 8.8, BUN 7 D, Creatinine 0.50 L, Estimated Creat Clear 151, Estimated GFR 153, Est GFR ( Amer) 185, Glucose 133 H D, Calcium 8.9, Total Bilirubin 0.2, AST 28 D, ALT 22, Alkaline Phosphatase 144 H, Total Protein 5.8 L, Albumin 3.2 L, Globulin 2.6, Albumin/Globulin Ratio 1.2 01/18/24 12:10: Vancomycin Trough 8.9 01/18/24 12:18: POC Glucose 92 Medical History: Medical History (Updated 12/23/23 @ 17:14 by Alysha Lee DO) GDM, class A2 Chronic hypertension affecting Assessment and Plan Assessment and plan all Dx Assessment and Plan for all problems:: VANCOMYCIN TROUGH LEVEL WAS 8.9 MCG/ML TODAY. PATIENT CURRENTLY BEING DOSE AT 2 GM Q8H FOR GBS + AND PCN ALLERGY AND CLINDAMYCIN RESISTANCE. WILL RECHECK VANCOMYCIN TROUGH LEVEL TOMORROW.
[2024-01-18 16:30] LABS: POC Glucose,Bedside 121 (70-110)
[2024-01-18] MEDS: BUTORPHANOL TARTRATE 1 MG/ML VIAL IV (16:34)
--- NOTE | 2024-01-18 16:59 | EXP.LABOR.NO ---
Labor Note Subjective: Date: 01/18/24 Time: 16:59 irregular contractions Comment:: Not feeling contractions, no cervical change, Pitocin is at a rate of 15 Objective: NST:: Reactive Contractions:: infrequent Cervical Dilation:: 1-2 Effacement:: 70% Station: -3 Membranes: artificially ruptured ( heart rate tracing category 1 AROM. Clear fluid. No complications) Fetus: Monitoring?: Yes monitoring type:: External Plan: Continue to monitor?: Yes
[2024-01-18 18:30] VITALS: BP 166/96
[2024-01-18] MEDS: LABETALOL 5MG/ML 20ML MDV 20 MG IV ×2 (18:30→22:19)
[2024-01-18 19:20] VITALS: BP 173/100
[2024-01-18 19:43] VITALS: BP 164/81
[2024-01-18] MEDS: LABETALOL 5MG/ML 20ML MDV 40 MG IV (19:43)
--- NOTE | 2024-01-18 19:59 | EXP.ANES.CKL ---
[facility] Disclaimer: The information contained in this section may have been updated after the patient was seen, as this information can be updated by other users. Medical History GDM, class A2 Chronic hypertension affecting Surgical History No significant past surgical history Family History Other Cancer Diabetes FHx: mental illness Hyperlipidemia Hypertension Substance abuse Thyroid disorder Social History (Updated 01/18/24 @ 19:20 by Dia Malik RN) Smoking Status: Former smoker alcohol intake: never substance use type: denies use current occupational status: employed Travel in the last 8 weeks: None [facility] Anesthesia Checklist Patient Identification Patient Identification: Arm Band Structural Data Admitted From: Home Planned Operative Procedure/s: Labor Epidural Consent for Planned Operative Procedure(s) Verified: Yes Verified Documents: Surgical Consent and History and Physical NPO Status Verified Time NPO: 00:00 Additional verifications Anesthesia Reactions: No Neurological Assessment Level of Consciousness: Awake, Alert and Appropriate Anesthesia Plan Anesthesia Risk discussed: Yes Anesthesia Plan: Verified ASA Class: II Anesthesia Type: Epidural
[2024-01-18 20:11] VITALS: BP 141/63
[2024-01-18 20:34] LABS: POC Glucose,Bedside 156 (70-110)
[2024-01-18] MEDS: humaLOG 100 UNITS/ML 10ML VIAL (SSI) SQ (21:19)
[2024-01-18 22:41] VITALS: BP 142/68
[2024-01-18 23:02] LABS: POC Glucose,Bedside 101 (70-110)
[2024-01-19] VITALS (15 sets, daily range): BP systolic 118–152; BP diastolic 56–94; PULSE 90–94; RESP 15–20; TEMP 36.8; O2SAT 95–100
[2024-01-19] MEDS: MAGNESIUM SULFATE IN WATER 4 GM/50 ML PIGGYBACK IV (02:08)
[2024-01-19] MEDS: LACTATED RINGERS 1000ML 1,000 ML 75 ML IV ×2 (02:08→23:32)
[2024-01-19] MEDS: MAGNESIUM SULFATE IN WATER 20 GM/500 ML IV.SOLN IV ×2 (02:34→15:56)
[2024-01-19 02:36] LABS: Basophils % 0.2 % (0.1-2.0); Eosinophils # 0.2 K/mm3 (0.0-0.4); Eosinophils % 1.4 % (0.1-12.0); Hemoglobin 13.1 g/dL (12.2-16.2); Lymphocytes # 0.9 K/mm3 (0.7-4.5); Lymphocytes % 6.4 % (10-50); Mean Corpuscular Hemoglobin 29.3 pg (27.0-31.2); Mean Corpuscular Volume 91.6 fl (81-99); Mean Platelet Volume 8.8 fl (7.4-10.4); Monocytes # 0.5 K/mm3 (0.1-1.0); Monocytes % 3.3 % (1.7-9.3); Neutrophils % 88.6 % (37.0-80.0); Platelet Count 243 K/mm3 (142-424); Red Blood Count 4.48 M/mm3 (4.20-5.40); Red Cell Distribution Width 15.1 % (11.5-17.5); White Blood Count 14.7 K/mm3 (4.8-10.8)
[2024-01-19 02:37] LABS: MANUAL DIFFERENTIAL MANUAL DIFFERENTIAL (MANUAL DIFF)
[2024-01-19 02:56] LABS: Eosinophils % 1 % (0-3); Lymphocytes % 7 % (10-50); Monocytes % 3 % (2-9); Neutrophils % 89 % (42-76); Platelet Estimate Normal; RBC Morphology Normal; Total Cells Counted 100
[2024-01-19 03:17] LABS: Chloride 111 mmol/L (98-107); Sodium 135 mmol/L (136-145)
[2024-01-19 03:18] LABS: POC Glucose,Bedside 96 (70-110)
[2024-01-19 03:18] LABS: Potassium 4.1 mmoL/L (3.5-5.1)
[2024-01-19 03:20] LABS: Alanine Aminotransferase 18 U/L (12-78); Albumin Level 2.9 g/dl (3.5-5.0); Albumin/Globulin Ratio 1.1 (1.1-1.8); Alkaline Phosphatase 166 U/L (38-126); Anion Gap 10.1 mEq/L (5-15); Aspartate Amino Transferase 26 U/L (14-36); Bilirubin,Total 0.4 mg/dl (0.2-1.3); Blood Urea Nitrogen 6 mg/dl (7-17); Calcium 8.9 mg/dl (8.4-10.2); Carbon Dioxide 18 mmol/L (22.0-30.0); Creatinine Clearance Estimated 189 mL/min (50-200); Estimated Glomerular Filt Rate 198 ml/min (>60); GFR (African American) 239 ML/MIN (>60); Globulin 2.7 g/dL (1.3-3.2); Glucose 93 mg/dl (74-100); Total Protein,Serum 5.6 g/dl (6.3-8.2)
[2024-01-19 03:21] LABS: Magnesium 3.1 mg/dl (1.6-2.3)
[2024-01-19] MEDS: VANCOMYCIN HCL 2,000 MG in 0.9 % SODIUM CHLORIDE 250 ML 125 MG IV (05:49)
[2024-01-19 07:40] LABS: POC Glucose,Bedside 83 (70-110)
[2024-01-19] MEDS: LABETALOL 100MG TABLET 200 MG PO ×3 (09:06→21:30)
--- NOTE | 2024-01-19 09:47 | EXP.ACUTE.PN ---
Subjective *Date: 01/19/24 *Time: 08:50 Interval history: She is doing well at this point in time. She really has not progressed in her labor. She has been on Cervidil then oxytocin for 48 hours. She had her membranes ruptured yesterday. She really has not progressed. She has had some episodes of increased blood pressure that required IV labetalol and she is now on magnesium sulfate. Her blood pressures are in the normal range at this point in time. Given the fact that she has not progressed we will go ahead with a section. Medical Exam Vital signs and Labs for Last 24 Hours: Vital Signs BP 01/18/24 22:41 142/68 H 01/18/24 20:11 141/63 H 01/18/24 19:43 164/81 H 01/18/24 19:20 173/100 H 01/18/24 18:30 166/96 H Intake and Output 01/18/24 01/19/24 01/19/24 19:59 03:59 11:59 Intake Total 2307 / 2741 434 / 2741 Output Total 900 / 1300 400 / 1300 Balance 1407 / 1441 34 / 1441 Intake: Intake, Total IV Amount 2229 / 2663 434 / 2663 Dextrose 5%-Lactated Ringers 1, 1904 / 1904 000 ml @ 125 mls/hr IV .Q8H ESTEPHANIA Rx#:[id number] Lactated Ringers 1000ML 1,000 75 / 310 235 / 310 ml @ 75 mls/hr IV .[id number] ESTEPH[facility]IA Rx#:[id number] Magnesium Sulfate in Water 20 191 / 191 gm In 500 ml @ 2 GM/HR 50 mls/ hr IV .Q10H ESTEPHANIA Rx#:[id number] Oxytocin/Ringers Lactate 30 8 / 8 units In 500 ml @ 3 mls/hr IV . Q25H ONE Rx#:[id number] Vancomycin HCl 2,000 mg In 0.9 250 / 250 % Sodium Chloride 250 ml @ 125 mls/hr IV Q8H ESTEPHANIA Rx#:[id number] Infusion Intake 78 / 78 Magnesium Sulfate in Water 20 78 / 78 gm In 500 ml @ 2 GM/HR 50 mls/ hr IV .Q10H ESTEPHANIA Rx#:[id number] Output: Output, Urine Amount 175 / 175 Output, Urine Amount (Catheter) 900 / 1125 225 / 1125 Argueta 900 / 1125 225 / 1125 Other: Weight 279 lb Patient Weight 01/19/24 11:59 Weight 279 lb Laboratory Results - last 24 hr 01/18/24 12:10: Vancomycin Trough 8.9 01/18/24 12:18: POC Glucose 92 01/18/24 16:22: POC Glucose 121 H 01/18/24 20:26: POC Glucose 156 H 01/18/24 22:55: POC Glucose 101 01/19/24 02:00: WBC 14.7 H D, RBC 4.48, Hgb 13.1, Hct 41.0, MCV 91.6, MCH 29.3, MCHC 32.0, RDW 15.1, Plt Count 243, MPV 8.8, Neut % (Auto) 88.6 H, Lymph % (Auto) 6.4 L, [place] % (Auto) 3.3, Eos % (Auto) 1.4, Baso % (Auto) 0.2, Neut # (Auto) 13.0 H, Lymph # (Auto) 0.9, [place] # (Auto) 0.5, Eos # (Auto) 0.2, Baso # (Auto) 0.0, Total Counted 100, Neutrophils % (Manual) 89 H, Lymphocytes % (Manual) 7 L, Monocytes % (Manual) 3, Eosinophils % (Manual) 1, Platelet Estimate Normal, RBC Morphology Normal 01/19/24 03:00: Sodium 135 L, Potassium 4.1, Chloride 111 H, Carbon Dioxide 18 L, Anion Gap 10.1, BUN 6 L, Creatinine 0.40 L, Estimated Creat Clear 189, Estimated GFR 198, Est GFR ( Amer) 239 D, Glucose 93 D, Calcium 8.9, Magnesium 3.1 H, Total Bilirubin 0.4, AST 26, ALT 18, Alkaline Phosphatase 166 H, Total Protein 5.6 L, Albumin 2.9 L, Globulin 2.7, Albumin/Globulin Ratio 1.1 01/19/24 03:05: POC Glucose 96 01/19/24 07:32: POC Glucose 83 I & O for Labs for Last 24 Hours: Intake & Output 01/16/24 01/17/24 01/18/24 01/19/24 11:59 11:59 11:59 11:59 Intake Total 2741 / 2741 Output Total 1300 / 1300 Balance 1441 / 1441 Weight 279 lb 279 lb Head: Present atraumatic and normocephalic ENT: Present normal exam Neck: Present normal inspection Respiratory: Present normal respiratory effort and able to speak in complete sentences; Absent accessory muscle use Cardiac: Present Reg Rate and Rhythm Assessment and Plan *Assessment and plan (1) Chronic hypertension with superimposed pre-eclampsia: Status: Acute Category: Medical Code(s): O11.9 - Pre-existing hypertension with pre-eclampsia, unspecified trimester (2) GDM, class A2: Status: Acute Category: Medical Code(s): O24.419 - Gestational diabetes mellitus in , unspecified control (3) Obesity, Class III, BMI 40-49.9 (morbid obesity): Status: Acute Category: Medical Code(s): E66.01 - Morbid (severe) obesity due to excess calories (4) pelvic disproportion antepartum: Status: Acute Category: Medical Code(s): O33.9 - Maternal care for disproportion, unspecified Plan We discussed the various options and she would like to go ahead with a section. On examination her cervix was 2 cm 50% and the station was minus 3+. The head was not engaged. We discussed the risks of surgery that includes bleeding, infection, injuries to the bowel and bladder. We discussed the need for DVT prophylaxis and the rare risk of DVT. All questions were answered and consents were signed. We discussed the use of a T AP block as well.
[2024-01-19] MEDS: ONDANSETRON 4MG/2ML VIAL 4 MG IV (09:57)
[2024-01-19] MEDS: GENTAMICIN SULFATE IV (12:25)
[2024-01-19] MEDS: SODIUM CHLORIDE 0.9% IV (12:25)
[2024-01-19] MEDS: CLINDAMYCIN PHOSPHATE/D5W 900 MG/50 ML PIGGYBACK 100 MG IV ×2 (12:30→18:49)
[2024-01-19 12:43] LABS: Cord Blood PH 7.32 (7.35-7.45)
--- NOTE | 2024-01-19 13:49 | EXP.OP.NOTE ---
Date of procedure: 01/19/24 Pre-op Diagnosis:: Term , chronic hypertension, gestational diabetes, pelvic disproportion, maternal obesity. Post-op Diagnosis:: Term , chronic hypertension, gestational diabetes, pelvic disproportion, maternal obesity, uterine atony Procedure performed:: Primary lower segment transverse section, B-boyle suture Surgeon:: Trae Motta MD Logging Equipment Operator(s):: Dr. Hutchins BREAST SURGEON:: Nima Willoughby Anesthesia: spinal Estimated blood loss (mL): 800 Clinical Note:: She is a 23-year-old 1 para 0 at 39 weeks gestational age. She was admitted 48 hours ago for induction of labor. She was started on Cervidil and then subsequently had her membranes ruptured and was given IV oxytocin. She really failed to progress beyond 2 cm. As result of that pelvic disproportion was diagnosed and we elected to perform a primary lower segment transverse section. The risks and benefits of surgery were discussed with the patient and her . Operative findings:: She delivered a liveborn female child at 12:36 PM in the afternoon of January 19, 2024. Baby had a loose nuchal cord. Apgars were 7 at 1 minute and 8 at 5 minutes. Postoperatively the uterus was quite boggy so we elected to perform a B-boyle suture. Ovaries and tubes appeared normal. Operative note:: She was taken to the operating room where spinal anesthesia was found be adequate. She was prepped and draped in normal sterile fashion in the supine position. A Argueta catheter was in the bladder. A Pfannenstiel skin incision was made with knife then carried through to the underlying layer of fascia with cautery. The fascia was opened in the midline with cautery and extended laterally using Proctor scissors. Mcintyre clamps were applied to the superior aspect of the fascial incision which was tented up and the underlying rectus muscles dissected off using cautery. The Saloni clamps were then applied to the inferior aspect of the fascial incision which in a similar fashion was tented up and the underlying rectus muscles dissected off using cautery. The rectus muscles were then in the midline, the peritoneum identified, and entered sharply.. An Martín retractor was then inserted into the abdominal cavity. Bladder peritoneum was opened midline extended laterally using Metzenbaum scissors. Transverse incision was made through the uterine muscle through to the amnion. This incision was then extended superiorly and inferiorly using the fingers as traction. There was clear amniotic fluid. The infant's head was then delivered atraumatically. There was a loose nuchal cord that was easily reduced. This was followed by the anterior shoulder and the rest of the infant's body atraumatically. The oropharynx and nasopharynx were bulb suctioned. The cord was then doubly clamped and cut. The infant was then handed off to Dr. Leon who assigned Apgars of 7 at 1 minute and 8 at 5 minutes. We then obtained cord blood. Using gentle traction on the cord and fundal massage I was able to easily deliver the placenta intact. It had a normal three-vessel cord. The uterus was then cleared of clots and debris . The uterine incision was then closed using running 0 Vicryl suture in a locked fashion. A second layer of the same suture was used to imbricate the first layer. The uterus was quite boggy so we elected to perform a B-boyle suture. Using a #1 Vicryl suture on a protective point needle I took a large bite anteriorly and then went over the top of the uterus. I took 2 bites posteriorly and then came back over the top of the uterus anteriorly and took another bite here. The uterus was then cinched down and tied. The bladder peritoneum was then closed using running 2-0 Vicryl suture in a locked fashion. The gutters and cul-de-sac were then cleared of clots and debris . Once again hemostasis was assured. I elected to place a large piece of Gelfoam along the uterine incision. The peritoneum was then closed with 2-0 Vicryl suture followed by reapproximation of the rectus muscle using 0 Vicryl suture. The fascia was closed using running #1 Vicryl suture. The subcutaneous tissues were then irrigated with warm water followed by closure Eboni's fascia using running 2-0 Monocryl suture. The skin was closed with absorbable arsenio. I then cleaned the skin with Hibiclens. Sterile dressings were applied. Anesthesia then performed a tap block under ultrasound guidance. She tolerated the procedure well and was taken to the recovery room in excellent condition. All sponges, instrument and needle counts were correct. Estimated blood loss was approximately 800 mL.. Condition: stable Disposition: floor Specimens:: Products of conception Complications:: None
[2024-01-19] MEDS: OXYTOCIN/RINGERS LACTATE 30 UNITS/500 ML BAG 40 UNITS IV (14:30)
[2024-01-19] MEDS: HYDROMORPHONE 2MG/ML SYRINGE 1 MG IV (14:40)
[2024-01-19] MEDS: IBUPROFEN 400 MG TABLET 800 MG PO (14:57)
[2024-01-19] MEDS: ACETAMINOPHEN 500MG TAB 1000 MG PO (14:58)
[2024-01-19] MEDS: LACTATED RINGERS 1000ML 1,000 ML 125 ML IV (15:56)
[2024-01-19] MEDS: OXYCODONE 5MG IMMEDIATE RELEASE TABLET 10 MG PO (15:58)
[2024-01-19] MEDS: SENNA 8.6MG TABLET 8.59999999999999964 MG PO (17:54)
[2024-01-19] MEDS: PRENATAL MULTIVITAMIN W/IRON 1 EACH PO (17:54)
[2024-01-19] MEDS: SIMETHICONE 80MG CHEWABLE TABLET 160 MG PO (17:55)
[2024-01-19] MEDS: METFORMIN 500MG TABLET 500 MG PO (21:30)
[2024-01-20] MEDS: IBUPROFEN 400 MG TABLET 800 MG PO ×3 (00:52→22:02)
[2024-01-20] MEDS: ACETAMINOPHEN 500MG TAB 1000 MG PO ×4 (00:52→22:01)
[2024-01-20] MEDS: MAGNESIUM SULFATE IN WATER 20 GM/500 ML IV.SOLN IV (02:17)
[2024-01-20] MEDS: CLINDAMYCIN PHOSPHATE/D5W 900 MG/50 ML PIGGYBACK 100 MG IV (03:48)
[2024-01-20] MEDS: OXYCODONE 5MG IMMEDIATE RELEASE TABLET 10 MG PO ×4 (05:51→22:02)
[2024-01-20 07:21] LABS: Basophils % 0.1 % (0.1-2.0); Eosinophils # 0.1 K/mm3 (0.0-0.4); Hematocrit 29.2 % (37.0-47.0); Hemoglobin 9.4 g/dL (12.2-16.2); Lymphocytes # 1.8 K/mm3 (0.7-4.5); Lymphocytes % 16.1 % (10-50); Mean Corpuscular HGB Conc 32.3 g/dL (31.8-35.4); Mean Corpuscular Hemoglobin 29.2 pg (27.0-31.2); Mean Corpuscular Volume 90.3 fl (81-99); Mean Platelet Volume 8.6 fl (7.4-10.4); Monocytes # 0.6 K/mm3 (0.1-1.0); Monocytes % 5.1 % (1.7-9.3); Neutrophils # 8.8 K/mm3 (1.8-7.8); Neutrophils % 77.7 % (37.0-80.0); Platelet Count 241 K/mm3 (142-424); Red Blood Count 3.23 M/mm3 (4.20-5.40); Red Cell Distribution Width 15.5 % (11.5-17.5); White Blood Count 11.3 K/mm3 (4.8-10.8)
[2024-01-20 08:34] LABS: Magnesium 5.7 mg/dl (1.6-2.3)
[2024-01-20] MEDS: SIMETHICONE 80MG CHEWABLE TABLET 160 MG PO ×4 (08:43→22:03)
[2024-01-20] MEDS: SENNA 8.6MG TABLET 8.59999999999999964 MG PO ×2 (08:43→20:33)
[2024-01-20 08:48] VITALS: BP 110/57; PULSE 93; RESP 18; TEMP 36.6; O2SAT 97
[2024-01-20] MEDS: METFORMIN 500MG TABLET 500 MG PO (09:50)
[2024-01-20 12:00] VITALS: BP 127/71; RESP 20
--- NOTE | 2024-01-20 13:11 | P.PNANES_ITS ---
[facility] Anesthesia Record Part II Anesthesia Record Part II Discharge Time: 14:00 Destination: Obstetric PACU nurse assessment reviewed?: Yes Patient Condition:: Good Anesthesia Complications:: None Swallowing reflex intact?: Yes Airway Patency: Patent Cyanosis?: No Blood Pressure: 133/87 SaO2: 99 Respiratory Rate: 16 Pulse Rate: 92 Temperature: 98.3 F Mental Status: Alert & Oriented Pain level:: 0 Nausea and/or vomitting:: None Intake, IV Amount: 0 Hydration: Adequate
[2024-01-20 13:12] VITALS: BP 133/87; PULSE 92; RESP 16; TEMP 36.8; O2SAT 99
--- NOTE | 2024-01-20 16:07 | P.PN_ITS ---
Subjective *Date: 01/20/24 *Time: 16:07 Interval history: POD # 1 s/p PLTCS Resting comfortably in bed. Pain controlled. Breast feeding. Lochia is appropriate. Voiding without difficulty and passing flatus. Tolerating regular diet. Denies fever/chills, chest pain and shortness of breath. No headaches, vision changes, lightheadedness/dizziness. No lower extremity swelling. Ambulating well ad amy. She is on mag sulfate for seizure prophylaxis. Medical Exam Vital signs and Labs for Last 24 Hours: Vital Signs Temp Pulse Resp BP Pulse Ox O2 Del Method 01/20/24 13:12 16 01/20/24 12:00 20 127/71 01/20/24 08:48 97.9 F 93 H 18 110/57 L 97 Room Air 01/19/24 17:04 18 118/56 L Intake and Output 01/20/24 01/20/24 01/20/24 07:59 15:59 23:59 Intake Total 508 / 883 375 / 883 Output Total 1200 / 1200 Balance 508 / -317 -825 / -317 Intake: Intake, Total IV Amount 508 / 883 375 / 883 Lactated Ringers 1000ML 1,000 170 / 295 125 / 295 ml @ 75 mls/hr IV .[id number] ESTEPH[facility]IA Rx#:[id number] Magnesium Sulfate in Water 20 338 / 588 250 / 588 gm In 500 ml @ 2 GM/HR 50 mls/ hr IV .Q10H ESTEPHANIA Rx#:[id number] Output: Output, Urine Amount 1200 / 1200 Laboratory Results - last 24 hr 01/17/24 13:16: Crossmatch (AHG) See Detail 01/20/24 06:35: WBC 11.3 H, RBC 3.23 L D, Hgb 9.4 L, Hct 29.2 L, MCV 90.3, MCH 29.2, MCHC 32.3, RDW 15.5, Plt Count 241, MPV 8.6, Neut % (Auto) 77.7, Lymph % (Auto) 16.1, [place] % (Auto) 5.1, Eos % (Auto) 1.0, Baso % (Auto) 0.1, Neut # (Auto) 8.8 H, Lymph # (Auto) 1.8, [place] # (Auto) 0.6, Eos # (Auto) 0.1, Baso # (Auto) 0.0, Magnesium 5.7 H D I & O for Labs for Last 24 Hours: Intake & Output 01/17/24 01/18/24 01/19/24 01/20/24 23:59 23:59 23:59 23:59 Intake Total 4312 / 4312 883 / 883 Output Total 2920 / 2920 1200 / 1200 Balance 1392 / 1392 -317 / -317 Weight 279 lb 279 lb Head: Present atraumatic and normocephalic ENT: Present mucous membranes moist Neck: Present normal inspection and full ROM Respiratory: Present CTA bilaterally and normal respiratory effort Cardiac: Present Reg Rate and Rhythm GI: Present soft and normal bowel sounds; Absent distention, tenderness or guarding Comments:: Uterine fundus firm and below umbilicus, pfannenstiel incision clean/dry/intact Rectal (female): Present deferred (female): Present deferred Extremities: Present full ROM; Absent edema or calf tenderness Neuro: Present alert, awake and moves all extremities Assessment and Plan *Assessment and plan (1) S/P : Status: Acute Category: Surgical Code(s): Z98.891 - History of uterine scar from previous surgery (2) pelvic disproportion antepartum: Status: Acute Category: Medical Code(s): O33.9 - Maternal care for disproportion, unspecified (3) Chronic hypertension with superimposed pre-eclampsia: Status: Acute Category: Medical Code(s): O11.9 - Pre-existing hypertension with pre-eclampsia, unspecified trimester (4) GDM, class A2: Status: Acute Category: Medical Code(s): O24.419 - Gestational diabetes mellitus in , unspecified control (5) Depression affecting : Status: Acute Category: Medical Code(s): O99.340 - Other mental disorders complicating , unspecified trimester; F32.A - Depression, unspecified (6) Obesity, Class III, BMI 40-49.9 (morbid obesity): Status: Acute Category: Medical Code(s): E66.01 - Morbid (severe) obesity due to excess calories (7) Acute blood loss anemia: Status: Acute Category: Medical Code(s): D62 - Acute posthemorrhagic anemia Plan Continue routine care Encouraged increased ambulation Mag level 5.7. Mag discontinued 24 hours after delivery @ 1230 today AM Hgb 9.4 BP has been normotensive but lower end of normal and labetalol was held... continue to monitor BP Plan d/c home POD #2 or POD # 3
[2024-01-20 16:08] LABS: POC Glucose,Bedside 89 (70-110)
[2024-01-20 16:26] VITALS: BP 141/82; PULSE 103; RESP 20; TEMP 36.8; O2SAT 97
[2024-01-20] MEDS: PRENATAL MULTIVITAMIN W/IRON 1 EACH PO (18:15)
[2024-01-20] MEDS: LABETALOL 100MG TABLET 200 MG PO (20:33)
[2024-01-21] MEDS: OXYCODONE 5MG IMMEDIATE RELEASE TABLET 10 MG PO ×4 (03:52→21:08)
[2024-01-21] MEDS: METFORMIN 500MG TABLET 500 MG PO (08:44)
[2024-01-21] MEDS: IBUPROFEN 400 MG TABLET 800 MG PO (08:44)
[2024-01-21] MEDS: LABETALOL 100MG TABLET 200 MG PO ×3 (08:45→21:08)
[2024-01-21] MEDS: ACETAMINOPHEN 500MG TAB 1000 MG PO ×2 (08:45→15:31)
--- NOTE | 2024-01-21 10:41 | EXP.ACUTE.PN ---
Subjective *Date: 01/21/24 *Time: 10:41 Interval history: POD # 2 s/p RLTCS Feeling okay. Pain is not well controlled. Breast feeding. Lochia is light. Voiding without difficulty and passing flatus. Tolerating regular diet. Denies fever/chills, chest pain and shortness of breath. No headaches, vision changes, lightheadedness/dizziness. +2 bilateral lower extremity swelling. No calf tenderness to palpation. Ambulating ad amy. She is very tearful and admits to feeling overwhelmed and worried she is not doing what she needs to as a mom to properly care for baby. GILA is changing diapers and is a big help taking care of Juniper but Susi feels sad that she isn't the one doing those things because she is having pain. She admits to history of depression. She saw a counselor in the past to help manage life stresses. Medical Exam Vital signs and Labs for Last 24 Hours: Vital Signs Temp Pulse Resp BP Pulse Ox O2 Del Method 01/20/24 16:26 98.2 F 103 H 20 141/82 H 97 Room Air 01/20/24 13:12 16 01/20/24 12:00 20 127/71 Intake and Output 01/20/24 01/21/24 01/21/24 23:59 07:59 15:59 Intake Total 1000 / 1883 Output Total 1000 / 2200 Balance 0 / -317 Intake: Intake, Oral Amount 1000 / 1000 Output: Output, Urine Amount 1000 / 2200 Laboratory Results - last 24 hr 01/17/24 13:16: Crossmatch (AHG) See Detail 01/20/24 16:01: POC Glucose 89 I & O for Labs for Last 24 Hours: Intake & Output 01/18/24 01/19/24 01/20/24 01/21/24 23:59 23:59 23:59 23:59 Intake Total 4312 / 4312 1883 / 1883 Output Total 2920 / 2920 2200 / 2200 Balance 1392 / 1392 -317 / -317 Weight 279 lb Head: Present atraumatic and normocephalic ENT: Present mucous membranes moist Neck: Present normal inspection Respiratory: Present CTA bilaterally and normal respiratory effort Cardiac: Present Reg Rate and Rhythm GI: Present soft and normal bowel sounds; Absent distention or tenderness Comments:: Uterine fundus firm and below umbilicus, pfannenstiel incision clean/dry/intact Rectal (female): Present deferred (female): Present deferred Extremities: Present full ROM and edema (+2 bilateral lower extremity edema); Absent calf tenderness Neuro: Present alert, awake and moves all extremities Assessment and Plan *Assessment and plan (1) S/P : Status: Acute Category: Surgical Code(s): Z98.891 - History of uterine scar from previous surgery (2) pelvic disproportion antepartum: Status: Acute Category: Medical Code(s): O33.9 - Maternal care for disproportion, unspecified (3) Chronic hypertension with superimposed pre-eclampsia: Status: Acute Category: Medical Code(s): O11.9 - Pre-existing hypertension with pre-eclampsia, unspecified trimester (4) GDM, class A2: Status: Acute Category: Medical Code(s): O24.419 - Gestational diabetes mellitus in , unspecified control (5) Depression affecting : Status: Acute Category: Medical Code(s): O99.340 - Other mental disorders complicating , unspecified trimester; F32.A - Depression, unspecified (6) Obesity, Class III, BMI 40-49.9 (morbid obesity): Status: Acute Category: Medical Code(s): E66.01 - Morbid (severe) obesity due to excess calories (7) Acute blood loss anemia: Status: Acute Category: Medical Code(s): D62 - Acute posthemorrhagic anemia (8) depression: Status: Acute Category: Medical Code(s): F53.0 - depression Plan Continue routine care Encouraged increased ambulation Start Sertraline 25 mg PO daily today Discussed referral to [facility] if she desires. She will let us know at her first visit if she feels she needs this service Continue to work on better pain control Plan d/c home tomorrow
[2024-01-21] MEDS: SERTRALINE 50MG TABLET 25 MG PO (10:56)
[2024-01-21 20:13] VITALS: BP 124/74; PULSE 94; RESP 18; TEMP 36.7; O2SAT 97
[2024-01-22] MEDS: OXYCODONE 5MG IMMEDIATE RELEASE TABLET 10 MG PO ×3 (01:10→12:17)
[2024-01-22 04:24] VITALS: BP 140/85; PULSE 94; RESP 20; TEMP 36.7; O2SAT 99
[2024-01-22] MEDS: LABETALOL 100MG TABLET 200 MG PO ×2 (10:27→14:29)
[2024-01-22] MEDS: SERTRALINE 50MG TABLET 25 MG PO (10:27)
[2024-01-22] MEDS: METFORMIN 500MG TABLET 500 MG PO (10:28)
--- NOTE | 2024-01-22 10:50 | EXP.DC.SUM ---
General Admission date:: 01/17/24 Discharge date: 01/22/24 HPI HPI HPI: POD # 3 s/p PLTCS Feeling better this morning. Breast and supplemental formula feeding. Light lochia. Voiding without difficulty and passing flatus. Tolerating regular diet. No fever/chills, chest pain or shortness of breath. No headaches, vision chagnes, lightheadedness or dizziness. She admits to improvement in lower extremity swelling. No calf pain. Ambulating well ad amy. Hospital Course Hospital Course Hospital Course: Susi Westfall is a pleasant 23yo who presented to labor and delivery at 38 weeks and 4 days gestation for a medically indicated induction of labor. has been complicated by chronic hypertension, gestational diabetes controlled with metformin, obesity, and depression. Hypertension has been controlled with labetalol 200 mg 3 times a day. She did have 1 elevated blood pressure near arrival but it was time for her labetalol dose. Blood pressure has been otherwise well-controlled. Of note her uric acid has been slowly rising over the last couple months otherwise her PIH labs have been within normal limits. She denies any headaches, vision changes, chest pain, or shortness of breath. On arrival she endorsed good movement and denies any leakage of fluid or vaginal bleeding. She underwent a two induction of labor with Cervidil and then Cytotec followed by Pitocin. Amniotomy was performed. She failed to progress after two day induction of labor. Decision was made to proceed with primary She underwent primary on 01/19/24. She delivered a life female baby, Irlanda, weighing 7 lb 13 oz. APGARs 7 (1 min), 8 (5 min). EBL 800 mL. During induction BP was severe range and she was started on mag sulfate. Mag level therapeutic at 5.7. Mag sulfate was continued until 24 hours after delivery. Depression increased after delivery. Sertraline was increased to 50 mg PO daily. She otherwise was doing well /postoperatively. Pain controlled. Breast and supplemental formula feeding. Light lochia. Voiding without difficulty and passing flatus. Tolerating regular diet. Denies fever/chills, chest pain and shortness of breath. No headaches, dizziness/lightheadedness or vision changes. Vital signs stable, afebrile. Heart regular rate and rhythm. Lungs clear to auscultation. Abdomen soft, nontender. She had +1 bilateral lower extremity swelling; no calf pain. Ambulating well ad amy. She was discharged to home on POD # 3 with instructions to follow-up in the office in 2 weeks or sooner if needed. She was instructed to continue Labetalol 200 mg PO TID. Exam Data for Last 24 hours Vital signs and Labs for Last 24 Hours: Temp Pulse Resp BP Pulse Ox O2 Del Method 98.1 F 94 H 20 140/85 99 Room Air 01/22/24 04:24 01/22/24 04:24 01/22/24 04:24 01/22/24 04:24 01/22/24 04:24 01/22/24 04:24 I & O for Last 24 hours: Intake & Output 01/19/24 01/20/24 01/21/24 01/22/24 23:59 23:59 23:59 23:59 Intake Total 4312 / 4312 1883 / 1883 Output Total 2920 / 2920 2200 / 2200 Balance 1392 / 1392 -317 / -317 Constitutional Constitutional: no acute distress and cooperative *Routine HEENT Exam Head: Present normocephalic and atraumatic Eye: Absent conjunctivae pink ENT: Present mucous membranes moist *Routine Neck Exam Neck: Present full ROM *Routine Respiratory Exam Respiratory: Present CTA bilaterally and normal respiratory effort *Routine Cardiovascular Exam Cardiovascular: Present RRR *Routine Abdominal Exam Abdominal: Present soft and normoactive bowel sounds; Absent tenderness or distended Comments: Pfannenstiel incision clean/dry/intact *Routine Rectal Exam Patient deferred: visual exam *Routine Exam Patient deferred: external exam *Routine Extremities Exam Extremities: Present edema (+1 bilateral lower extremity edema) and full ROM; Absent calf tenderness *Routine Neurological Exam Neurological: Present alert, moving all extremities and normal speech Routine Psychiatric Exam Psychiatric: Present normal affect and cooperative DS: Diagnosis Discharge Diagnosis (1) S/P : Status: Acute Code(s): Z98.891 - History of uterine scar from previous surgery (2) pelvic disproportion antepartum: Status: Acute Code(s): O33.9 - Maternal care for disproportion, unspecified (3) Chronic hypertension with superimposed pre-eclampsia: Status: Acute Code(s): O11.9 - Pre-existing hypertension with pre-eclampsia, unspecified trimester (4) GDM, class A2: Status: Acute Code(s): O24.419 - Gestational diabetes mellitus in , unspecified control (5) Depression affecting : Status: Acute Code(s): O99.340 - Other mental disorders complicating , unspecified trimester; F32.A - Depression, unspecified (6) Obesity, Class III, BMI 40-49.9 (morbid obesity): Status: Acute Code(s): E66.01 - Morbid (severe) obesity due to excess calories (7) Acute blood loss anemia: Status: Acute Code(s): D62 - Acute posthemorrhagic anemia (8) depression: Status: Acute Code(s): F53.0 - depression Meds Home Medications and Allergies Home Medications Medication Instructions Recorded Confirmed Type vits no.126-ferrous fum 1 tab PO DAILY #30 tabs 07/12/23 01/17/24 Rx 28 mg iron-folic acid 800 mcg tablet (Classic ) blood-glucose meter #1 ea 11/18/23 01/17/24 Rx labetalol 200 mg tablet 200 mg PO TID 12/23/23 01/17/24 History ibuprofen 400 mg tablet 800 mg (2 x 400 mg) PO Q8HP PRN 01/22/24 Rx Mild Pain (1-3) #40 tabs oxycodone 5 mg tablet 5 mg PO Q4HP PRN Severe Pain 01/22/24 Rx (7-10) #20 tabs sertraline 50 mg tablet 50 mg PO DAILY #30 tabs 01/22/24 Rx New Prescriptions to Start Prescriptions: Kassandra Michaels oxycodone Kassandra Hutchins sertraline Kassandra Hutchins Allergies Allergy/AdvReac Type Severity Reaction Status Date / Time Penicillins Allergy Intermediate rash Verified 01/10/24 09:24 Discharge Plan Disposition Patient Disposition: Home, Self-Care Condition: Good Discharge Order Discharge Orders: Discharge Order (Routine); Ordered 01/22/24 Ordered By: Kassandra Hutchins Follow up Plan Follow up with: Alysha Lee DO [Staff Physician] - 02/02/24 11:15 am Prescriptions/Medication Reconciliation: New ibuprofen 400 mg Tablet 800 mg PO Q8HP PRN (Reason: Mild Pain (1-3)) Qty: 40 0RF oxycodone 5 mg Tablet 5 mg PO Q4HP PRN (Reason: Severe Pain (7-10)) Qty: 20 0RF sertraline 50 mg tablet 50 mg PO DAILY Qty: 30 0RF Continued Classic 28 mg iron- 800 mcg tablet 1 tab PO DAILY Qty: 30 11RF labetalol 200 mg tablet 200 mg PO TID Discontinued metformin 500 mg tablet 500 mg PO DAILY Qty: 60 4RF aspirin [Adult Low Dose Aspirin] 81 mg tablet,delayed release (DR/EC) 81 mg PO DAILY Qty: 60 4RF sertraline 25 mg tablet 25 mg PO DAILY Qty: 30 2RF ondansetron 4 mg tablet,disintegrating 4 mg PO Q4HP PRN (Reason: nausea and vomiting) No Action (DME) blood-glucose meter Kit See Rx Instructions .Route Qty: 1 0RF Rx Instructions: Check glucose QID, strips #100, lancets #100 Problem Reconciliation Problems Reviewed?: Yes Patient Discharge Instructions ACTIVITY: Continue current activity and No heavy lifting DIET: regular diet Additional Instructions: Discharge: 1. Take 800 mg Ibuprofen every 8 hours as needed for pain. You can also take 500-1000 mg of Tylenol in between doses, every 6-8 hours. If pain persists you can take Oxycodone 5 mg, 1 tablet every 4-6 hours or more as needed. 2. Nothing in the vagina for 6 weeks - no intercourse, douching or tampons. No tub baths/hot tubs or swimming pools - Drink plenty of fluids. - No strenuous activity or driving until released by your doctor. - Don't lift anything heavier than your . 3. Reasons to return to L&D or call On-Call doctor - fever (greater than 100.4) - heavy vaginal bleeding (soaking through 1 pad in less than 2 hours) - vaginal discharge (malodorous and/or purulent) - severe headaches not resolved by medication or rest and leg tenderness/edema 4. depression/blues - Normal to feel anxious/overwhelmed for first 2 weeks - Talk to your doctor if: severe anxiety, trouble bonding with baby, withdrawing from other family members, thoughts of harming yourself or others Patient Instructions: Depression, Hemorrhage, DI for , DI for Pre-eclampsia, [facility] Post Discharge Instructions Providers Primary Care Provider: Provider,Referral Admit Provider: Alysha Lee Attending Provider: Alysha Lee
[2024-01-22] MEDS: ACETAMINOPHEN 500MG TAB 1000 MG PO (12:16)
[2024-01-22] MEDS: IBUPROFEN 400 MG TABLET 800 MG PO (12:16)
== END 2024-01-22 16:50 | disposition home or self-care (01) | DRG 787 ==
PROVIDERS: Nurse Practitioner Obstetrics & Gynecology; Obstetrics & Gynecology; Admitting Provider Obstetrics & Gynecology; Visit Provider Obstetrics & Gynecology
PROC: (CPT 59514; principal; 2024-01-19 12:00)
DX: O24.425 Gestational diabetes mellitus in childbirth, controlled by oral hypoglycemic drugs (principal); D62 Acute posthemorrhagic anemia; Z3A.38 38 weeks gestation of pregnancy; Z37.0 Single live birth; O11.4 Pre-existing hypertension with pre-eclampsia, complicating childbirth; O99.214 Obesity complicating childbirth; O99.345 Other mental disorders complicating the puerperium; F53.0 Postpartum depression; Z87.891 Personal history of nicotine dependence; O33.9 Maternal care for disproportion, unspecified; O62.2 Other uterine inertia; Z23 Encounter for immunization; O90.81 Anemia of the puerperium
CPT/HCPCS: 59514; 36415; 59025; 80048; 80053; 80202; 82570; 82800; 82962; 83615; 83735; 84156; 84550; 85007; 85014; 85018; 85025; 86850; 94761; C9144; C9290; G0283; J0595; J1170; J1580; J2405; J3010; J3370; J7120

== ENCOUNTER 2024-11-09 21:19 | Emergency (ER) | payer OTHER, SELFPAY ==
[2024-11-09 21:56] VITALS: BP 169/91; PULSE 102; RESP 18; TEMP 37.8; O2SAT 100; BMI 48.0
--- NOTE | 2024-11-09 22:20 | ED_ITS ---
Discharge Plan Disposition Patient Disposition: Home, Self-Care Chief Complaint: Ear Prescriptions Prescriptions: No Action Classic 28 mg iron- 800 mcg tablet 1 tab PO DAILY Qty: 30 11RF labetalol 200 mg tablet 200 mg PO TID (DME) blood-glucose meter Kit See Rx Instructions .Route Qty: 1 0RF Rx Instructions: Check glucose QID, strips #100, lancets #100 oxycodone 5 mg Tablet 5 mg PO Q4HP PRN (Reason: Severe Pain (7-10)) Qty: 20 0RF sertraline 50 mg tablet 50 mg PO DAILY Qty: 30 0RF Referrals Follow up/Referrals: Provider,Referral, [Primary Care Provider] - See instructions Rhiannon Moore APRN [Nurse Practitioner] - See instructions Activity Restrictions/Add. Instructions Additional Instructions/Restrictions: At this time it was felt you are safe to be discharged home. If new or worsening symptoms please do not hesitate to return the emergency department. Please apply 5 drops in each ear twice a day for 7 days. If your symptoms are not improving by Tuesday please call and schedule appointment with ENT as they may need to debride the canals in your ears. Clinical Impressions Clinical Impression: Otitis externa of both ears Print Language Print Language: Romansh Discharge ED Provider: Rohan Berman General Adult HPI General Chief complaint: Ear Stated complaint: ear pain both ears, rt ear swollen, lt ear drain Time Seen by Provider: 11/09/24 21:56 Mode of Arrival: Ambulatory Source of Information: Patient Description of Symptoms (Recalled from ER Triage Doc. by RN): Pt to ED with c/o bilat ear pain and drainage starting yesterday History of Present Illness HPI narrative: Patient is a 24-year-old female no pertinent past medical history presents em ergency department for evaluation of bilateral ear pain and drainage. Onset was acute, over the last 24 hours. There is been drainage from both of her ears and pain causing her to present here for continued evaluation. No other acute complaints at this time. Please note that above description of symptoms, in this electronic medical record under categorization of recalled from ER triage doctor by RN are reflective of an initial nursing assessment, however, is not reflective of my full history and physical exam that was personally taken and clarified. Consequentially, this preceding description of symptoms, which may include the patient's categorized chief complaint in the EMR, do not reflect my personal clinical impression, and the ultimate description of history of present illness and patient stated complaints should be deferred to this section of the note. Unless stated otherwise or congruent with this section of the note, additional signs, symptoms, or incongruence should be interpreted as inaccurate with my clinical impression. Related Data Home Medications ?Medication ?Instructions ?Recorded ?Confirmed labetalol 200 mg tablet 200 mg PO TID 12/23/23 02/02/24 Previous Rx's ?Medication ?Instructions ?Recorded vits no.126-ferrous fum 1 tab PO DAILY #30 tabs 07/12/23 28 mg iron-folic acid 800 mcg tablet (Classic ) blood-glucose meter #1 ea 11/18/23 oxycodone 5 mg tablet 5 mg PO Q4HP PRN Severe Pain 01/22/24 (7-10) #20 tabs sertraline 50 mg tablet 50 mg PO DAILY #30 tabs 01/22/24 Allergies Allergy/AdvReac Type Severity Reaction Status Date / Time Penicillins Allergy Intermediate rash Verified 02/02/24 11:30 [facility] Disclaimer: The information contained in this section may have been updated after the stefania sharma was seen, as this information can be updated by other users. Medical History depression Acute blood loss anemia GDM, class A2 Chronic hypertension affecting Surgical History S/P Family History Other Cancer Diabetes FHx: mental illness Hyperlipidemia Hypertension Substance abuse Thyroid disorder Social History Smoking Status: Never smoker alcohol intake: never substance use type: denies use current occupational status: employed Travel in the last 8 weeks: None Have you lived/traveled outside [place] in past 30 days?: No Contact w/someone who lives/traveled outside [place] past 30 days?: No Exposure to someone with infectious disease in past 14 days?: No Do you have a fever (greater than 100.4 F or 38 C)?: No Have you tested positive for COVID-19: No Exposed to someone with COVID-19 in past 14 days?: No Do you have a sore throat?: No Do you have a cough?: No Do you have any weakness?: No Do you have any diarrhea?: No Are you experiencing any unusual bleeding?: No Do you have any muscle aches/pain?: No Do you have any abdominal pain?: No Are you experiencing loss of taste or smell?: No Other Medical History Have you received the Flu Vaccine for this season: No Have you received the Pneumonia Vaccine: No ROS Obtained: Yes Systems reviewed as appropriate & no additional complaints except as documented Physical Exam General General appearance: alert and in no apparent distress Head Head exam: atraumatic and normocephalic Eye Eye exam: Present PERRL and EOMI ENT ENT exam: Present mucous membranes moist and other (Edematous and fibrinous exudate in the bilateral external auditory canals, no anterior effacement of the pinna or retroauricular lymphadenopathy. Pinna sign positive bilaterally.) Neck Neck exam: Present normal inspection Chest Chest inspection: Present normal inspection and symmetric chest wall rise Respiratory Respiratory exam: Absent respiratory distress Cardiovascular Cardiovascular exam: Present regular rate and normal rhythm Extremities Exam Extremities exam: Present normal inspection Neurological Exam Neurological exam: Present alert and CN II-XII intact Psychiatric Psychiatric exam: Present normal affect Skin Skin exam: Present warm and dry Medical Decision Making Medical Records Screening: Per USPSTF and CDC recommendations, given the prevalence of disease in our region, it is our hospital?s policy to screen for HIV and viral Hepatitis for all patients aged 18 and over and those with ongoing risk factors. Raj Inquiry Pt receiving controlled substance: No Vital Signs: 11/09/24 21:56 Temperature 100.1 F H Temperature Source Oral Pulse Rate [Right Radial] 102 H Respiratory Rate 18 Blood Pressure [Left Arm] 169/91 H Blood Pressure Mean [Left Arm] 117 Blood Pressure Source [Left Arm] Automatic Cuff Blood Pressure Position [Left Arm] Sitting 02 Sat by Pulse Oximetry 100 Oxygen Delivery Method Room Air Orders (Tests/Meds): ED MEDICATIONS Generic Name Dose Route Start Last Admin Trade Name Freq PRN Reason Stop Dose Admin Ofloxacin 0 ml 11/09/24 22:19 Ofloxacin 0.3% Otic Solution 5ml OT 11/09/24 22:20 ONCE ONE Medical Decision Narrative: In summary patient is a 24-year-old female past medical history described above who presents emergency department for evaluation of bilateral ear pain. Patient is hemodynamically stable nontoxic-appearing upon arrival, afebrile. Clinically patient has bilateral otitis externa which will be treated with ofloxacin otic drops. Patient is appropriate for discharge at this time given that I have no concern for mastoiditis workable labs and imaging was considered but will be deferred. Patient will be prescribed a course of ofloxacin drops will follow-up with ENT if symptoms persist for possible debridement. Critical Care Critical Care Time Critical Care Time: No
[2024-11-09] MEDS: OFLOXACIN 0.3% OTIC SOLUTION 5ML OT (22:25)
[2024-11-09 22:26] VITALS: BP 163/89; PULSE 94; RESP 18; TEMP 37.8; O2SAT 99
== END 2024-11-09 22:30 | disposition home or self-care (01) ==
PROVIDERS: Emergency Provider Emergency Medicine
DX: H60.93 Unspecified otitis externa, bilateral (principal); H92.03 Otalgia, bilateral; H92.13 Otorrhea, bilateral
CPT/HCPCS: 99283